=== PATIENT | female | born 1955 | race Caucasian/White ===

== ENCOUNTER 2021-05-26 18:30 | Emergency (ER) | payer SELFPAY ==
--- NOTE | 2021-05-26 18:36 | XRR_ITS ---
PROCEDURE INFORMATION: Exam: XR Chest Exam date and time: 05/26/2021 6:36 PM Age: 65 years old Clinical indication: Pain; Left-sided; Additional info: Chest pain that radiates to back x 1 month worsening TECHNIQUE: Imaging protocol: XR of the chest. Views: 1 view. COMPARISON: No relevant prior studies available. FINDINGS: Lungs: Hyperinflated lungs. No consolidation. Pleural spaces: Unremarkable. No pleural effusion. No pneumothorax. Heart/Mediastinum: Unremarkable. No cardiomegaly. Bones/joints: Unremarkable. XR/XR chest 1V portable [id number] IMPRESSION: Hyperinflated lungs. No consolidation.
[2021-05-26 19:09] VITALS: BP 137/89; PULSE 81; RESP 18; TEMP 36.3; O2SAT 96; BMI 26.5
[2021-05-26 21:26] LABS: Basophils # 0.1 10^3/uL (0.0-0.1); Eosinophils # 0.1 10^3/uL (0.0-0.8); Hematocrit 41.6 % (37.0-47.0); Hemoglobin 14.1 g/dL (11.5-15.3); Lymphocytes # 2.2 10^3/uL (0.8-4.8); Lymphocytes % 34.4 %; Mean Corpuscular HGB Conc 33.9 g/dL (30.0-36.0); Mean Corpuscular Hemoglobin 34.7 pg (28.0-34.0); Mean Corpuscular Volume 102.5 fL (81-99); Mean Platelet Volume 9.4 fL (7.4-10.4); Monocytes # 0.3 10^3/uL (0.2-0.9); Monocytes % 4.8 %; Neutrophils % 58.5 %; Nucleated Red Blood Cells % 0 %; Platelet Count 218 10^3/cmm (130-400); Red Blood Count 4.06 10^6/uL (4.1-5.3); Red Cell Distribution Width 14.9 % (12.1-15.1); White Blood Count 6.3 10^3/uL (4.0-10.0)
[2021-05-26 21:47] LABS: Troponin(5th) Baseline 17 ng/L (0-10)
[2021-05-26 21:48] LABS: Alanine Aminotransferase 15 U/L (0-33); Albumin Level 4.5 g/dL (3.5-5.2); Alkaline Phosphatase 52 IU/L (35-105); Anion Gap 15.8 (5-19); Aspartate Amino Transferase 27 U/L (0-32); Blood Urea Nitrogen 9 mg/dL (8-23); Calcium 9.3 mg/dL (8.5-10.5); Carbon Dioxide 23 mmol/L (22-29); Chloride 101 mmol/L (98-107); Glomerular Filtration Rate 41.4 mL/min (90-130); Glucose 83 mg/dL (65-115); Osmolality Calculated 280 mOsm/kg (285-295); Potassium 3.8 mmol/L (3.5-5.1); Sodium 136 mmol/L (136-145); Total Bilirubin 0.4 mg/dL (0.15-1.2); Total Protein 6.5 g/dL (6.6-8.7)
--- NOTE | 2021-05-27 00:36 | ECG_ITS ---
[facility] ED Test Date: 2021-05-27 Pat Name: Saritah Cisneros Department: Room: Gender: Female Topography Technician: : 1955 Requested By: Charla Wilson Order Number: [id number] Reading MD: Rosalind Jennings M.D. Measurements Intervals [place] Rate: 65 P: 98 SD: 149 QRS: 75 QRSD: 79 T: -67 QT: 397 QTc: 416 Interpretive Statements SINUS RHYTHM LOW QRS VOLTAGE IN PRECORDIAL LEADS [QRS DEFLECTION < 1.0 mV IN CHEST LEADS] NONSPECIFIC ST & T-WAVE ABNORMALITY No previous ECG available for comparison Electronically Signed On 06-02-2021 10:07:44 CDT by Rosalind Jennings M.D. [id number]
--- NOTE | 2021-05-27 00:43 | W.ED.CHESTPA ---
HPI - Chest Pain General: Chief Complaint: Chest Pain Stated Complaint: chest pain Time Seen by Provider: 05/27/21 00:36 Source: patient Mode of arrival: ambulatory Limitations: no limitations History of Present Illness: HPI narrative: 65-year-old female states that over the last 2 months she has been having some fatigue along with chest pains. States that she believes she is fluid overloaded because she has had some swelling in her extremity and face. She states that she has Marie's and is supposed take Synthroid but has not taken it in weeks. She denies any worsening improving factors. Denies any chest pain currently. Denies any cough or fever. Associated symptoms: Reports dyspnea; Deny abdominal pain, fever(s), nausea or vomiting Review of Systems Const: Denies: fever(s), chills, body aches or change in appetite Eyes: Denies: blurry vision or eye discomfort ENMT: Denies: throat pain or dental pain Card: Reports: chest pain Resp: Reports: dyspnea and non-productive cough GI: Denies: abdominal pain, nausea, vomiting or diarrhea : Denies: dysuria Musc: Denies: neck pain or back pain Skin/Breast: Denies: rash Neuro: Denies: headache(s) Psych: Denies: depression Rohan/Lymph: Denies: easy bruising All/Imm: Denies: urticaria Physical Exam Const: COMMON NORMALS: no acute distress, patient oriented x3 and healthy appearing HENMT: COMMON NORMALS: normocephalic and atraumatic HEAD & SCALP: normocephalic and atraumatic Eye: COMMON NORMALS: Equal, round and reactive pupils present and EOMs intact bilaterally PUPIL: Yes Equal, round and reactive pupils present Neck/C-Spine: COMMON NORMALS: full ROM and supple Chest: COMMONS NORMALS: normal inspection of the chest and normal palpation of entire chest wall Resp: COMMON NORMALS: normal respiratory effort, No retractions, No use of accessory muscles and clear to auscultation bilaterally AUSCULTATION: clear to auscultation bilaterally Cardio: COMMON NORMALS: regular rate, regular rhythm and No murmurs present (Cardio) RATE: regular rate RHYTHM: regular rhythm GI: COMMON NORMALS: Normal to inspection, nondistended, normoactive bowel sounds present, Soft to palpation, non-tender and no masses PALPATION: Yes Soft to palpation Extremity: COMMON NORMALS: normal to inspection and full ROM Neuro: COMMON NORMALS: patient oriented x3, moves all extremities and no focal motor deficits Psych: COMMON NORMALS: mental status grossly normal, Normal thought process present and cooperative THOUGHT PROCESS: Normal thought process present Skin: COMMON NORMALS: no rashes or lesions noted and no wounds GENERAL SKIN EXAM: no rashes or lesions noted Course Vital Signs: Vital signs: Vital Signs Temperature 97.3 F L 05/26/21 19:09 Pulse Rate 71 05/27/21 02:29 Respiratory Rate 18 05/27/21 02:29 Blood Pressure 149/87 05/27/21 02:29 Pulse Oximetry 95 05/27/21 02:29 MDM - Chest Pain MDM Narrative: Medical decision making narrative: Patient presents for some malaise along with swelling. She has no signs of heart failure and her BNP is normal. Her TSH is quite high and she does admit she is actually been noncompliant with her Synthroid for multiple months. She has not had a PCP either. We will start her back on her Synthroid and get her new PCP. She is well-appearing here is stable for discharge. She is to follow-up and return if worsening. Lab Data: Labs: Lab Results 05/26/21 05/26/21 05/26/21 Range/Units 21:18 21:18 21:18 WBC 6.3 (4.0-10.0) 10^3/ uL RBC 4.06 L (4.1-5.3) 10^6/u L Hgb 14.1 (11.5-15.3) g/dL Hct 41.6 (37.0-47.0) % MCV 102.5 H (81-99) fL MCH 34.7 H (28.0-34.0) pg MCHC 33.9 (30.0-36.0) g/dL RDW 14.9 (12.1-15.1) % Plt Count 218 (130-400) 10^3/c mm MPV 9.4 (7.4-10.4) fL Neut % (Auto) 58.5 % Lymph % (Auto) 34.4 % Edmunds % (Auto) 4.8 % Eos % (Auto) 1.0 % Baso % (Auto) 1.0 % Neut # (Auto) 3.70 (1.8-7.7) 10^3/u L Lymph # (Auto) 2.2 (0.8-4.8) 10^3/u L Edmunds # (Auto) 0.3 (0.2-0.9) 10^3/u L Eos # (Auto) 0.1 (0.0-0.8) 10^3/u L Baso # (Auto) 0.1 (0.0-0.1) 10^3/u L Nucleated RBC % (a uto) 0 % Nucleated RBCs # 0.0 /100WBC Sodium 136 (136-145) mmol/L Potassium 3.8 (3.5-5.1) mmol/L Chloride 101 (98-107) mmol/L Carbon Dioxide 23 (22-29) mmol/L Anion Gap 15.8 (5-19) BUN 9 (8-23) mg/dL Creatinine 1.3 H (0.5-0.9) mg/dL GFR Calculation 41.4 L (90-130) mL/min Glucose 83 (65-115) mg/dL Calculated Osmolal ity 280 L (285-295) mOsm/k g Calcium 9.3 (8.5-10.5) mg/dL Total Bilirubin 0.4 (0.15-1.2) mg/dL AST 27 (0-32) U/L ALT 15 (0-33) U/L Alkaline Phosphata se 52 (35-105) IU/L Troponin T Baselin e 17 H (0-10) ng/L Troponin T 120 Min hamilton (0-10) ng/L Delta Troponin T (0-10) ABS# NT-Pro-B Natriuret Pep (0-125) pg/mL Total Protein 6.5 L (6.6-8.7) g/dL Albumin 4.5 (3.5-5.2) g/dL Globulin 2.0 (1.3-4.6) g/dL TSH (0.27-4.20) uIU/ mL 05/26/21 05/26/21 Range/Units 23:11 23:11 WBC (4.0-10.0) 10^3/ uL RBC (4.1-5.3) 10^6/u L Hgb (11.5-15.3) g/dL Hct (37.0-47.0) % MCV (81-99) fL MCH (28.0-34.0) pg MCHC (30.0-36.0) g/dL RDW (12.1-15.1) % Plt Count (130-400) 10^3/c mm MPV (7.4-10.4) fL Neut % (Auto) % Lymph % (Auto) % Edmunds % (Auto) % Eos % (Auto) % Baso % (Auto) % Neut # (Auto) (1.8-7.7) 10^3/u L Lymph # (Auto) (0.8-4.8) 10^3/u L Edmunds # (Auto) (0.2-0.9) 10^3/u L Eos # (Auto) (0.0-0.8) 10^3/u L Baso # (Auto) (0.0-0.1) 10^3/u L Nucleated RBC % (a uto) % Nucleated RBCs # /100WBC Sodium (136-145) mmol/L Potassium (3.5-5.1) mmol/L Chloride (98-107) mmol/L Carbon Dioxide (22-29) mmol/L Anion Gap (5-19) BUN (8-23) mg/dL Creatinine (0.5-0.9) mg/dL GFR Calculation (90-130) mL/min Glucose (65-115) mg/dL Calculated Osmolal ity (285-295) mOsm/k g Calcium (8.5-10.5) mg/dL Total Bilirubin (0.15-1.2) mg/dL AST (0-32) U/L ALT (0-33) U/L Alkaline Phosphata se (35-105) IU/L Troponin T Baselin e (0-10) ng/L Troponin T 120 Min hamilton 15.95 H (0-10) ng/L Delta Troponin T -1.05 L (0-10) ABS# NT-Pro-B Natriuret Pep 60 (0-125) pg/mL Total Protein (6.6-8.7) g/dL Albumin (3.5-5.2) g/dL Globulin (1.3-4.6) g/dL TSH 171.10 H (0.27-4.20) uIU/ mL EKG Data^: EKG 1: Attestation: I personally reviewed and interpreted this EKG as follows: EKG interpretation date: 05/26/21 EKG interpretation time: 19:23 Interpretation: nsr hr [address] or t wave abnormalities qrs 84 qtc 414 EKG 2: Attestation: I personally reviewed and interpreted this EKG as follows: EKG interpretation date: 05/27/21 EKG interpretation time: 00:38 Interpretation: nsr hr [address] or t wve abnormalities qrs 79 qtc 409 Discharge Plan Discharge Patient Disposition: Home Clinical Impression: Hypothyroidism Qualifiers: Hypothyroidism type: unspecified Qualified Code(s): E03.9 - Hypothyroidism, unspecified Condition: Stable Prescriptions: New Synthroid 112 mcg tablet 112 mcg PO DAILY Qty: 30 RF: 0 Discharge Orders: Discharge ED (Routine); Ordered 05/27/21 Ordered By: Charla Wilson Discharge Diet: Advance as tolerated Discharge Activity: Resume usual activity Patient Instructions: Hypothyroidism (ED) Coding Level of Care Code ED Memorial Marker Designer for Chg Fwd Exam Comprehensive
[2021-05-27 00:48] VITALS: BP 149/91; PULSE 98; RESP 18; O2SAT 94
[2021-05-27 01:03] LABS: Troponin 5 2HR 15.95 ng/L (0-10); Troponin 5 2HR Delta -1.05 ABS# (0-10)
[2021-05-27 01:16] VITALS: BP 155/93; PULSE 66; O2SAT 94
[2021-05-27 01:25] LABS: NT Pro B Type Natriuretic Pept 60 pg/mL (0-125)
[2021-05-27 02:28] VITALS: BP 149/87; PULSE 67; O2SAT 94
[2021-05-27 02:29] VITALS: BP 149/87; PULSE 71; RESP 18; O2SAT 95
--- NOTE | 2021-05-27 09:18 | DCPLANNER ---
manager simulation had message to speak with patient about getting established with a primary care physician. manager simulation called phone number [phone], unable to speak with patient at this time. manager simulation was unable to leave a voicemail for patient due to no voicemail box being set up at this time.
== END 2021-05-27 02:31 | disposition home or self-care (01) ==
PROVIDERS: Emergency Provider Emergency Medicine
DX: E03.9 Hypothyroidism, unspecified (principal)
CPT/HCPCS: 36415; 71045; 80053; 83880; 84443; 84484; 85025; 93005; 99283

== ENCOUNTER 2021-06-08 10:51 | Outpatient (CLI) | payer SELFPAY ==
[2021-06-08 11:41] LABS: Free T4 Free Thyroxine 1.35 ng/dL (0.82-1.77); Thyroid Stimulating Hormone 25.14 uIU/mL (0.27-4.20)
== END 2021-06-08 10:52 | disposition home or self-care (01) ==
LOC: LAB 10:54
PROVIDERS: Visit Provider Internal Medicine
DX: E03.9 Hypothyroidism, unspecified (principal)
CPT/HCPCS: 36415; 84439; 84443

== ENCOUNTER 2022-02-10 09:37 | Outpatient (CLI) | payer SELFPAY ==
[2022-02-10 11:14] LABS: Free T4 Free Thyroxine 1.27 ng/dL (0.82-1.77); Thyroid Stimulating Hormone 9.38 uIU/mL (0.27-4.20)
== END 2022-02-10 09:38 | disposition home or self-care (01) ==
LOC: LAB 09:39
PROVIDERS: Visit Provider Internal Medicine
DX: E03.9 Hypothyroidism, unspecified (principal)
CPT/HCPCS: 36415; 84439; 84443

== ENCOUNTER 2022-06-24 12:56 | Observation (INO) | payer SELFPAY ==
[2022-06-24] VITALS (19 sets, daily range): BP systolic 92–151; BP diastolic 54–80; PULSE 42–123; RESP 12–23; TEMP 36.7–36.9; O2SAT 93–98
--- NOTE | 2022-06-24 13:25 | ECG_ITS ---
[facility] Test Date: 2022-06-24 Pat Name: Saritha Cisneros Department: Room: Gender: Female Shipper And Receiving: : 1955 Requested By: Sathya Doherty Order Number: [id number] Mark MD: Rosalind Jennings M.D. Measurements Intervals [place] Rate: 123 P: 75 SC: 120 QRS: 72 QRSD: 84 T: 59 QT: 274 QTc: 393 Interpretive Statements SINUS TACHYCARDIA MODERATE ST DEPRESSION [0.05+ mV ST DEPRESSION] Compared to ECG 05/27/2021 00:38:05 ST (T wave) deviation now present Sinus rhythm no longer present T-wave abnormality no longer present Electronically Signed On 06-25-2022 13:07:01 CDT by Rosalind Jennings M.D. [id number]
--- NOTE | 2022-06-24 13:34 | ED_ITS ---
HPI - Arrhythmia/Palpitations General: Chief Complaint: Arrhythmia/Palpitations Stated Complaint: Racing heart Time Seen by Provider: 06/24/22 13:16 Source: patient Mode of arrival: ambulatory Limitations: no limitations History of Present Illness: 66-year-old female presents emergency room with complaints of rapid heart rate. She reports at home earlier today she had a heart rate up into the 180s. She had a similar episode last week and it was accompanied by chest pain that resolved itself spontaneously. This episode she felt it was still rapid and irregular when she arrived here but when you put her on the monitor it was down in the 120s. She had chest discomfort with this episode as well that resolved when her heart rate improved. She is a history of hypothyroidism and is currently on thyroxine she has no known history of coronary artery disease but she does smoke. She has no known history of any tachyarrhythmias. MD complaint: rapid heart beat, heart racing , skipped beats and irregular heart beat Onset (ago): week(s) (Initial episode 1 week ago also associated with chest pain) Duration: intermittent Severity: moderate Context: occurred during rest Associated symptoms: Deny anxiety, cough, diaphoresis, muscle cramps, nausea, paresthesias, pre-syncope, sense of impending doom, short of breath, syncope or vomiting Review of Systems Const: Denies: fever(s), chills, fatigue, malaise or diaphoresis ENMT: Denies: throat pain, ear or mastoid pain, nasal discharge or nasal congestion Card: Reports: chest pain and irregular heart rhythm; Denies: palpitations, edema, swelling of feet/ankles, syncope or pre-syncope Resp: Denies: dyspnea, productive cough or non-productive cough GI: Denies: abdominal pain, nausea or vomiting : Denies: flank pain, difficulty voiding, dysuria, urinary frequency or urinary urgency Musc: Denies: muscle cramps Skin/Breast: Denies: rash or pruritus Psych: Denies: anxiety PFSH ED PFSH: Medical History Chest pain Colitis Congestive heart failure Hypothyroidism Palpitation Rheumatoid arthritis Surgical History No history of previous surgery Family History Father CAD (coronary artery disease) Diabetes Mother Rheumatoid arteritis Social History Smoking and tobacco status: current every day smoker cigarettes Packs smoked per day: 0.5 Alcohol intake: never Physical Exam Const: GENERAL APPEARANCE: cooperative and comfortable ORIENTATION/CONSCIOUSNESS: Yes awake, Yes oriented to person, Yes oriented to place and Yes oriented to time HENMT: COMMON NORMALS: normocephalic, atraumatic and hearing grossly normal bilaterally HEAD & SCALP: normocephalic and atraumatic Resp: COMMON NORMALS: normal respiratory effort, No retractions, No use of accessory muscles and clear to auscultation bilaterally AUSCULTATION: clear to auscultation bilaterally Cardio: COMMON NORMALS: regular rate, regular rhythm and No murmurs present (Cardio) RATE: regular rate RHYTHM: regular rhythm GI: COMMON NORMALS: Soft to palpation and No hepatosplenomegaly present AUSCULTATION: Yes normoactive bowel sounds PALPATION: Yes Soft to palpation, No Tenderness to palpation present (GI), No Guarding due to palpation present (GI) and Yes No hepatosplenomegaly present Extremity: COMMON NORMALS: normal to inspection, capillary refill normal, no clubbing, cyanosis or edema, no calf tenderness and no pedal edema Neuro: SENSORIUM/ORIENTATION: Yes oriented to person, Yes oriented to place and Yes oriented to time Skin: COMMON NORMALS: no rashes or lesions noted GENERAL SKIN EXAM: no rashes or lesions noted Course Vital Signs: Vital signs: Vital Signs Temperature 97.4 F L 06/25/22 00:00 Pulse Rate 64 06/25/22 11:00 Respiratory Rate 12 06/25/22 11:00 Blood Pressure 143/78 06/25/22 11:00 Pulse Oximetry 91 06/25/22 10:00 Oxygen Delivery Me thod 06/24/22 18:18 MDM - Arrhythmia/Palpitations Medical Decision Making Patient reports previous abnormal stress test. She is having chest pain now episode a week ago resolved spontaneously this 1 resolved after receiving nitro. Discussed with hospitalist will admit placed on observation. Medical Records I reviewed the patient's medical records. Lab Data I reviewed the patient's lab results. : 06/25/22 03:54 06/25/22 03:54 Laboratory Results WBC 8.0 10^3/uL (4.0-10.0) 06/24/22 13:24 RBC 4.72 10^6/uL (4.1-5.3) 06/24/22 13:24 Hgb 15.5 g/dL (11.5-15.3) H 06/24/22 13:24 Hct 46.2 % (37.0-47.0) 06/24/22 13:24 MCV 97.9 fl (81-99) 06/24/22 13:24 MCH 32.8 pg (28.0-34.0) 06/24/22 13:24 MCHC 33.5 g/dL (30.0-36.0) 06/24/22 13:24 RDW 12.9 % (12.1-15.1) 06/24/22 13:24 Plt Count 240 10^3/cmm (130-400) 06/24/22 13:24 MPV 9.9 fL (7.4-10.4) 06/24/22 13:24 Neut % (Auto) 75.7 % 06/24/22 13:24 Lymph % (Auto) 18.3 % 06/24/22 13:24 [place] % (Auto) 4.9 % 06/24/22 13:24 Eos % (Auto) 0.3 % 06/24/22 13:24 Baso % (Auto) 0.5 % 06/24/22 13:24 Neut # (Auto) 6.04 10^3/uL (1.8-7.7) 06/24/22 13:24 Lymph # (Auto) 1.5 10^3/uL (0.8-4.8) 06/24/22 13:24 [place] # (Auto) 0.4 10^3/uL (0.2-0.9) 06/24/22 13:24 Eos # (Auto) 0.0 10^3/uL (0.0-0.8) 06/24/22 13:24 Baso # (Auto) 0.0 10^3/uL (0.0-0.1) 06/24/22 13:24 Nucleated RBC % (auto) 0 % 06/24/22 13:24 Nucleated RBCs # 0.0 /100WBC 06/24/22 13:24 Sodium 141 mmol/L (136-145) 06/24/22 13:24 Potassium 4.4 mmol/L (3.5-5.1) 06/24/22 13:24 Chloride 103 mmol/L (98-107) 06/24/22 13:24 Carbon Dioxide 26 mmol/L (22-29) 06/24/22 13:24 Anion Gap 16.4 (5-19) 06/24/22 13:24 BUN 13 mg/dL (8-23) 06/24/22 13:24 Creatinine 0.9 mg/dL (0.5-0.9) 06/24/22 13:24 GFR Calculation 63.0 mL/min (90-130) L 06/24/22 13:24 Glucose 111 mg/dL (65-115) 06/24/22 13:24 Calculated Osmolality 293 mOsm/kg (285-295) 06/24/22 13:24 Calcium 9.6 mg/dL (8.5-10.5) 06/24/22 13:24 Magnesium 1.9 mg/dL (1.7-2.3) 06/24/22 13:24 Total Bilirubin 0.3 mg/dL (0.15-1.2) 06/24/22 13:24 AST 16 U/L (0-32) 06/24/22 13:24 ALT 11 U/L (0-33) 06/24/22 13:24 Alkaline Phosphatase 63 U/L (35-105) 06/24/22 13:24 Troponin T Baseline 11 ng/L (0-10) H 06/24/22 13:24 Troponin T 120 Minute 15.02 ng/L (0-10) H 06/24/22 15:18 Delta Troponin T 4.02 ABS# (0-10) 06/24/22 15:18 Total Protein 7.1 g/dL (6.6-8.7) 06/24/22 13:24 Albumin 4.2 g/dL (3.5-5.2) 06/24/22 13:24 Globulin 2.9 g/dL (1.3-4.6) 06/24/22 13:24 TSH 9.92 uIU/mL (0.27-4.20) H 06/24/22 13:24 Urine Color Yellow (Yellow) 06/24/22 14:06 Urine Appearance Clear (CLEAR) 06/24/22 14:06 Urine pH 7 (5-7) 06/24/22 14:06 Ur Specific [place] 1.000 (1.005-1.030) L 06/24/22 14:06 Urine Protein Neg (Negative) 06/24/22 14:06 Urine Glucose (UA) Norm (Normal) 06/24/22 14:06 Urine Ketones Negative (Negative) 06/24/22 14:06 Urine Blood Neg (Negative) 06/24/22 14:06 Urine Nitrate Negative (Negative) 06/24/22 14:06 Urine Bilirubin Neg (Negative) 06/24/22 14:06 Urine Urobilinogen Norm mg/dL (Negative) 06/24/22 14:06 Ur Leukocyte Esterase Negative (Negative) 06/24/22 14:06 Discharge Plan Discharge Patient Disposition: Admitted As Inpatient Admit Provider: Jayme Vang Clinical Impression: Chest pain, Palpitations, Hypothyroidism Condition: Stable Discharge Diet: Cardiac Discharge Activity: Resume usual activity Coding Level of Care Code ED Boot And Saddle Repair Person for Chg Fwd Exam Detailed
[2022-06-24 13:37] LABS: Basophils % 0.5 %; Eosinophils % 0.3 %; Hematocrit 46.2 % (37.0-47.0); Hemoglobin 15.5 g/dL (11.5-15.3); Lymphocytes # 1.5 10^3/uL (0.8-4.8); Lymphocytes % 18.3 %; Mean Corpuscular HGB Conc 33.5 g/dL (30.0-36.0); Mean Corpuscular Hemoglobin 32.8 pg (28.0-34.0); Mean Corpuscular Volume 97.9 fl (81-99); Mean Platelet Volume 9.9 fL (7.4-10.4); Monocytes # 0.4 10^3/uL (0.2-0.9); Monocytes % 4.9 %; Neutrophils # 6.04 10^3/uL (1.8-7.7); Neutrophils % 75.7 %; Nucleated Red Blood Cells % 0 %; Platelet Count 240 10^3/cmm (130-400); Red Blood Count 4.72 10^6/uL (4.1-5.3); Red Cell Distribution Width 12.9 % (12.1-15.1)
[2022-06-24 14:05] LABS: Troponin(5th) Baseline 11 ng/L (0-10)
[2022-06-24 14:15] LABS: Alanine Aminotransferase 11 U/L (0-33); Albumin Level 4.2 g/dL (3.5-5.2); Alkaline Phosphatase 63 U/L (35-105); Anion Gap 16.4 (5-19); Aspartate Amino Transferase 16 U/L (0-32); Blood Urea Nitrogen 13 mg/dL (8-23); Calcium 9.6 mg/dL (8.5-10.5); Carbon Dioxide 26 mmol/L (22-29); Chloride 103 mmol/L (98-107); Globulin 2.9 g/dL (1.3-4.6); Glucose 111 mg/dL (65-115); Magnesium 1.9 mg/dL (1.7-2.3); Osmolality Calculated 293 mOsm/kg (285-295); Potassium 4.4 mmol/L (3.5-5.1); Sodium 141 mmol/L (136-145); Thyroid Stimulating Hormone 9.92 uIU/mL (0.27-4.20); Total Bilirubin 0.3 mg/dL (0.15-1.2); Total Protein 7.1 g/dL (6.6-8.7)
[2022-06-24 14:22] LABS: Add Urine Microscopic? NO; Bilirubin Urine Neg (Negative); Blood Urine Neg (Negative); Glucose Urine UA Norm (Normal); Ketones Urine Negative (Negative); Leukocyte Esterase Urine Negative (Negative); Nitrate Urine Negative (Negative); Protein Urine Neg (Negative); Urine Appearance Clear (CLEAR); Urine Color Yellow (Yellow); Urobilinogen Urine Norm (Negative); pH Urine 7 (5-7)
[2022-06-24 14:24] LABS: Charge for UA Resulting for Rev
[2022-06-24] MEDS: metoprolol tartrate 25 mg Tablet PO (15:09)
[2022-06-24] MEDS: metoprolol tartrate 1 mg/1 mL SDV 5 mL 2.5 MG IVP (15:09)
--- NOTE | 2022-06-24 15:25 | ECG_ITS ---
[facility] Test Date: 2022-06-24 Pat Name: Saritha Cisneros Department: Room: Gender: Female Nuclear Design Engineer: : 1955 Requested By: Sathya Doherty Order Number: [id number] Reading MD: Rosalind Jennings M.D. Measurements Intervals [place] Rate: 78 P: 74 MT: 152 QRS: 62 QRSD: 85 T: 68 QT: 356 QTc: 406 Interpretive Statements SINUS RHYTHM Compared to ECG 05/27/2021 00:38:05 T-wave abnormality no longer present Electronically Signed On 06-25-2022 13:17:00 CDT by Rosalind Jennings M.D. [id number]
[2022-06-24 15:47] LABS: Troponin 5 2HR 15.02 ng/L (0-10)
[2022-06-24 15:51] LABS: Troponin 5 2HR Delta 4.02 ABS# (0-10)
[2022-06-24] MEDS: aspirin 81 mg Chew Tablet 324 MG PO (16:10)
--- NOTE | 2022-06-24 17:50 | P.HP_ITS ---
Providers/Chief Complaint Admitting Physician: Jayme Vang MD Chief Complaint: Racing heart History of Present Illness Saritha Cisneros is a 66 year old female with PMH of hypothyroidism, COVID, came in with c/o acute onset palpitation as well as chest pain today at home, she has experienced similar episode of racing of heart about a week back at that time it was accompanied with lt sided chest pain, radiating to her jaws, it re solved spontaneously. When she arrived in the ER she was found to be in sinus tachycardia,she was given metoprolol po as well as I.V in the ER, ALONG WITH 325 MG PO aspirin. When i examined the patient she was in sinus bradycardia. Pertinent imaging studies in the ER : EKG done so far has shown sinus tachycardia as well as SR and sinus Bradycardia. Pertinent Labs : WBC : 8 H&H : 15/46 , PLT : 240 , Na: 141, K : 4.4 BUN/SCR : 13/0.9 , TSH : 9.9 Troponin: 09-05-17 Medications/Allergies Home Medications Medication Instructions Recorded Confirmed Last Taken Type levothyroxine 112 mcg tablet 112 mcg PO DAILY #90 tabs 06/14/21 06/24/22 06/24/22 Rx (Synthroid) Allergies Allergy/AdvReac Type Severity Reaction Status Date / Time acetaminophen Allergy ALGY-Anaphy Verified 06/24/22 13:12 [From Darvocet-N] laxis propoxyphene Allergy ALGY-Anaphy Verified 06/24/22 13:12 [From Darvocet-N] laxis PFSH Acute PFSH: Medical History Colitis Congestive heart failure Hypothyroidism Rheumatoid arthritis Surgical History No history of previous surgery Family History Father CAD (coronary artery disease) Diabetes Mother Rheumatoid arteritis Social History Smoking and tobacco status: current every day smoker cigarettes Packs smoked per day: 0.5 Alcohol intake: never Vitals/I&O/Wt Last Vital Signs Temp 98.5 F 06/24/22 13:07 Pulse 72 06/24/22 16:16 Resp 14 06/24/22 16:16 BP 113/72 06/24/22 16:16 Pulse Ox 98 06/24/22 16:16 O2 Del Method 06/24/22 16:16 Weight last 48 hrs Weight 54.431 kg Physical Exam Const: COMMON NORMALS: patient oriented x3 HENMT: COMMON NORMALS: normocephalic and atraumatic HEAD & SCALP: normocephalic and atraumatic Eye: GENERAL EYE: appearance normal, both eyes and all related structures Chest: COMMONS NORMALS: normal inspection of the chest and normal palpation of entire chest wall CHEST: Yes Symmetrical chest wall rise Resp: COMMON NORMALS: normal respiratory effort, No retractions, No use of accessory muscles and clear to auscultation bilaterally EFFORT & INSPECTION: Yes symmetric chest movement AUSCULTATION: clear to auscultation bilaterally Cardio: COMMON NORMALS: regular rate, regular rhythm, S1 normal heart sound pr esent, S2 normal heart sound present, No gallops present (Cardio), No murmurs present (Cardio), No rub (Cardio) and Peripheral pulses 2+ throughout RATE: regular rate RHYTHM: regular rhythm HEART SOUNDS: S1 normal heart sound present and S2 normal heart sound present PERIPHERAL PULSES: Peripheral pulses 2+ throughout GI: COMMON NORMALS: Normal to inspection, nondistended, normoactive bowel sounds present, Soft to palpation, non-tender, No hepatosplenomegaly present and no masses AUSCULTATION: Yes normoactive bowel sounds PALPATION: Yes Soft to palpation and Yes No hepatosplenomegaly present RECTAL EXAM: deferred Extremity: COMMON NORMALS: no clubbing, cyanosis or edema and no pedal edema Neuro: COMMON NORMALS: patient oriented x3 Data : 06/24/22 13:24 06/24/22 13:24 A&P Assessment and plan (1) Hypothyroidism: Status: Acute (2) Palpitation: Status: Acute (3) Chest pain: Status: Acute Plan 66 year old female with PMH of hypothyroidism, COVID, came in with c/o acute onset palpitation as well as chest pain today at home, she has experienced similar episode of racing of heart about a week back at that time it was accompanied with lt sided chest pain, radiating to her jaws, it resolved spontaneously. Assessment : Palpitation Hypothyroidism Chest Pain Plan : Off note patient gives h/o abnormal stress test in past. Follow 2D Echo Continue telemetry monitoring Possible Event monitor as outpatient Will do repeat stress Test. possibly outpatient. Continue Levothyroxine po Code Status : Full Code DVT PPX: On lovenox Attestations Medical Necessity Statement*: Patient needs to be in hospital for the management of palpitation, chest pain. Time Spent in Patient Care: Greater than 35 minutes (>than 50% of time spent in counselling and/or direct pt care on unit) . Coding Level of Care Code Acute Radio/Tv Technician for Chg Fwd Diagnoses Hypothyroidism E03.9 Palpitation R00.2 Chest pain R07.9
[2022-06-24] MEDS: enoxaparin 30 mg/0.3 mL Syringe SUBCUT (18:25)
--- NOTE | 2022-06-24 19:25 | ECG_ITS ---
[facility] Test Date: 2022-06-24 Pat Name: Saritha Cisneros Department: Room: [facility] Gender: Female Baby Doctor: : 1955 Requested By: Sathya Doherty Order Number: [id number] Mark MD: Rosalind Jennings M.D. Measurements Intervals [place] Rate: 48 P: 63 MI: 162 QRS: 62 QRSD: 87 T: 64 QT: 463 QTc: 415 Interpretive Statements SINUS BRADYCARDIA Compared to ECG 06/24/2022 15:39:26 Sinus rhythm no longer present Electronically Signed On 06-25-2022 13:14:39 CDT by Rosalind Jennings M.D. [email or web address] [facility]flower [facility] centerSalsa [facility]he [id number]
[2022-06-24 19:47] LABS: Troponin 5 6HR 17.17 ng/L (0-10)
[2022-06-24 19:50] LABS: Troponin 5 6HR Delta 6.17 ng/L (0-12)
--- NOTE | 2022-06-24 20:09 | USCV_ITS ---
Saritha Cisneros Age: 66 Gender: F : 1955 Exam Date: 06/24/2022 22:33 Ordering Phys: Jayme Vang MD Technologist: Quentin Hodge Exam Location[place] [facility] [place] Indication: Chest pain / palpitations BP: 116 / 61 HR: 44 Rhythm: Sinus Technical Quality: Adequate MEASUREMENTS (Male / Female) Normal Values 2D ECHO LV Diastolic Diameter PLAX 3.2 cm 4.2 - 5.9 / 3.9 - 5.3 cm LV Systolic Diameter PLAX 2.3 cm IVS Diastolic Thickness 1.7 cm 0.6 - 1.0 / 0.6 - 0.9 cm IVS Systolic Thickness 1.4 cm LVPW Diastolic Thickness 1.3 cm 0.6 - 1.0 / 0.6 - 0.9 cm LVPW Systolic Thickness 1.4 cm LVOT Diameter 2.1 cm LV Ejection Fraction 2D Teich 55.2 % LV Ejection Fraction MOD 2C 58.0 % LV Ejection Fraction 2C AL 59.4 % LA Diameter 2.4 cm LA Width 3.0 cm LA Height 4.3 cm RA Width 3.7 cm RA Height 4.0 cm Aorta at Sinotubular Diameter 2.8 cm IVC Diameter 1.1 cm M-MODE Aortic Annulus Diameter 3.2 cm LA Ao Ratio MM 0.9 MV E Point Septal Separation 1.4 cm DOPPLER AV Peak Velocity 90.0 cm/s LVOT Peak Velocity 66.0 cm/s AV Area Cont Eq vti 2.3 cm squared AV Area Cont Eq pk 2.4 cm squared MV Area PHT 3.6 cm squared Mitral E to A Ratio 1.2 MV E' Velocity 52.0 cm/s Mitral E to MV E' Ratio 9.6 Mitral E to LV E' Lateral Ratio 9.4 Mitral E to LV E' Septal Ratio 9.8 Right Atrial Pressure 3.0 mmHg PV Peak Velocity 82.0 cm/s FINDINGS Left Ventricle Normal left ventricular size, systolic function and wall thickness, with no regional wall motion abnormalities. Left ventricular ejection fraction is estimated at 60 -65%. Normal diastolic function. Right Ventricle Normal right ventricular size and systolic function. RVSP could not be calculated due to incomplete tricuspid regurgitation velocity profile. Right Atrium Normal right atrial size. Left Atrium Normal left atrial size. Mitral Valve Structurally normal mitral valve. No mitral valve stenosis. Trace mitral valve regurgitation. Aortic Valve Aortic valve not well visualized. No aortic valve stenosis. No aortic valve regurgitation. Tricuspid Valve Structurally normal tricuspid valve. Trace tricuspid valve regurgitation. Pulmonic Valve Pulmonic valve not well visualized. No pulmonary valve stenosis. No pulmonary valve regurgitation. Pericardium No pericardial effusion. Aorta Normal size aortic root and proximal ascending aorta. IVC Normal IVC dimension with >50% respiratory change of the inferior vena cava. CONCLUSIONS 1. Normal left ventricular size, systolic function and wall thickness, with no regional wall motion abnormalities. Left ventricular ejection fraction is estimated at 60 -65%. Normal diastolic function. 2. Normal right ventricular size and systolic function. 3. Trace mitral valve regurgitation. 4. No prior similar studies to compare. Rosalind Jennings MD (Electronically Signed) Final Date: 25 June 2022 12:48 S
[2022-06-25] VITALS (17 sets, daily range): BP systolic 106–148; BP diastolic 59–87; PULSE 47–111; RESP 12–20; TEMP 36.3; O2SAT 91–96
[2022-06-25 05:03] LABS: Basophils # 0.1 10^3/uL (0.0-0.1); Basophils % 0.8 %; Eosinophils # 0.1 10^3/uL (0.0-0.8); Eosinophils % 1.1 %; Hematocrit 42.2 % (37.0-47.0); Lymphocytes # 2.4 10^3/uL (0.8-4.8); Lymphocytes % 37.7 %; Mean Corpuscular HGB Conc 33.2 g/dL (30.0-36.0); Mean Corpuscular Hemoglobin 33.1 pg (28.0-34.0); Mean Corpuscular Volume 99.8 fl (81-99); Mean Platelet Volume 10.2 fL (7.4-10.4); Monocytes # 0.4 10^3/uL (0.2-0.9); Monocytes % 5.6 %; Neutrophils # 3.51 10^3/uL (1.8-7.7); Neutrophils % 54.6 %; Nucleated Red Blood Cells % 0 %; Platelet Count 185 10^3/cmm (130-400); Red Blood Count 4.23 10^6/uL (4.1-5.3); Red Cell Distribution Width 13.1 % (12.1-15.1); White Blood Count 6.4 10^3/uL (4.0-10.0)
[2022-06-25 05:23] LABS: INR 0.95 (0.8-1.2)
[2022-06-25 05:56] LABS: Alanine Aminotransferase 8 U/L (0-33); Alkaline Phosphatase 55 U/L (35-105); Aspartate Amino Transferase 12 U/L (0-32); Blood Urea Nitrogen 12 mg/dL (8-23); Calcium 8.8 mg/dL (8.5-10.5); Carbon Dioxide 24 mmol/L (22-29); Chloride 106 mmol/L (98-107); Globulin 2.2 g/dL (1.3-4.6); Glomerular Filtration Rate 100.6 mL/min (90-130); Glucose 84 mg/dL (65-115); Osmolality Calculated 289 mOsm/kg (285-295); Sodium 140 mmol/L (136-145); Thyroid Stimulating Hormone 9.23 uIU/mL (0.27-4.20); Total Bilirubin 0.4 mg/dL (0.15-1.2); Total Protein 6.2 g/dL (6.6-8.7)
[2022-06-25] MEDS: levothyroxine 112 mcg Tablet PO (08:36)
--- NOTE | 2022-06-25 12:05 | P.DS_ITS ---
Discharge Providers Date of Admission: 06/24/22 17:59 Date of Discharge: June 25, 2022 Attending Provider at Admission: Jayme Vang MD Attending Provider at Discharge: Jayme Vang MD Diagnoses at Discharge Discharge Diagnosis (1) Hypothyroidism: Status: Acute (2) Palpitation: Status: Acute (3) Chest pain: Status: Acute Reason for Visit Reason for Visit: Racing heart Hospital Course Hospital Course HPI : Saritha Cisneros is a 66 year old female with PMH of hypothyroidism, COVID,? came in with c/o acute onset palpitation as well as chest pain today at home, she has experienced similar episode of racing of heart about a week back at that time it was accompanied with lt sided chest pain, radiating to her jaws,? it resolved spontaneously. When she arrived in the ER she was found to be in sinus tachycardia,she was given metoprolol po as well as I.V in the ER, ALONG WITH 325 MG PO aspirin. When i examined the patient she was in sinus bradycardia. Pertinent imaging studies in the ER : EKG done so far has shown sinus tachycardia as well as SR and sinus Bradycardia. Pertinent Labs : WBC : 8 H&H : 15/46 , PLT : 240 , Na: 141, K : 4.4 BUN/SCR : 13/0.9 , TSH : 9.9 Troponin: 09-05-17. Patient was admitted for the management of symptomatic palpitation: During the hospital stay she was initially into sinus bradycardia, later she was in sinus rhythm. 2D echo done during the hospital stay: Normal left ventricular size, systolic function and wall ?thickness, with no regional wall motion abnormalities. Left ventricular ejection fraction is estimated at 60 -65%. Normal ?diastolic function. Normal right ventricular size and systolic function. Trace mitral valve regurgitation. She has been discharged on p.o. metoprolol as needed, for sustained heart rate greater than 110, outpatient event monitor for a month as well as outpatient cardiac stress test, given her prior history of abnormal stress test, as told by the patient, records of which is currently not available. Overall patient has responded well to medical management and was discharged in stable condition to home. She will follow cardiology as well as primary care physician as outpatient Physical Exam Const: COMMON NORMALS: patient oriented x3 HENMT: COMMON NORMALS: normocephalic and atraumatic HEAD & SCALP: normocephalic and atraumatic Eye: GENERAL EYE: appearance normal, both eyes and all related structures Chest: COMMONS NORMALS: normal inspection of the chest and normal palpation of entire chest wall CHEST: Yes Symmetrical chest wall rise Resp: COMMON NORMALS: normal respiratory effort, No retractions, No use of accessory muscles and clear to auscultation bilaterally EFFORT & INSPECTION: Yes symmetric chest movement AUSCULTATION: clear to auscultation bilaterally Cardio: COMMON NORMALS: regular rate, regular rhythm, S1 normal heart sound present, S2 normal heart sound present, No gallops present (Cardio), No murmurs present (Cardio), No rub (Cardio) and Peripheral pulses 2+ throughout RATE: regular rate RHYTHM: regular rhythm HEART SOUNDS: S1 normal heart sound present and S2 normal heart sound present PERIPHERAL PULSES: Peripheral pulses 2+ throughout GI: COMMON NORMALS: Normal to inspection, nondistended, normoactive bowel sounds present, Soft to palpation, non-tender, No hepatosplenomegaly present and no masses AUSCULTATION: Yes normoactive bowel sounds PALPATION: Yes Soft to palpation and Yes No hepatosplenomegaly present RECTAL EXAM: deferred Extremity: COMMON NORMALS: no clubbing, cyanosis or edema and no pedal edema Neuro: COMMON NORMALS: patient oriented x3 Discharge Data Studies Completed and Pending Pending at discharge Category Date Time Status Complete Blood Count w/Auto AM LABS Lab 06/26/22 04:00 Ordered Complete Blood Count w/Auto AM LABS Lab 06/27/22 04:00 Ordered Comprehensive Metabolic Panel AM LABS Lab 06/26/22 04:00 Ordered Comprehensive Metabolic Panel AM LABS Lab 06/27/22 04:00 Ordered CV. echo complete* [id number] Routine Ultrasound 06/24/22 20:09 Taken Laboratory Results WBC 6.4 10^3/uL (4.0-10.0) 06/25/22 03:54 RBC 4.23 10^6/uL (4.1-5.3) 06/25/22 03:54 Hgb 14.0 g/dL (11.5-15.3) 06/25/22 03:54 Hct 42.2 % (37.0-47.0) 06/25/22 03:54 MCV 99.8 fl (81-99) H 06/25/22 03:54 MCH 33.1 pg (28.0-34.0) 06/25/22 03:54 MCHC 33.2 g/dL (30.0-36.0) 06/25/22 03:54 RDW 13.1 % (12.1-15.1) 06/25/22 03:54 Plt Count 185 10^3/cmm (130-400) 06/25/22 03:54 MPV 10.2 fL (7.4-10.4) 06/25/22 03:54 Neut % (Auto) 54.6 % 06/25/22 03:54 Lymph % (Auto) 37.7 % 06/25/22 03:54 [place] % (Auto) 5.6 % 06/25/22 03:54 Eos % (Auto) 1.1 % 06/25/22 03:54 Baso % (Auto) 0.8 % 06/25/22 03:54 Neut # (Auto) 3.51 10^3/uL (1.8-7.7) 06/25/22 03:54 Lymph # (Auto) 2.4 10^3/uL (0.8-4.8) 06/25/22 03:54 [place] # (Auto) 0.4 10^3/uL (0.2-0.9) 06/25/22 03:54 Eos # (Auto) 0.1 10^3/uL (0.0-0.8) 06/25/22 03:54 Baso # (Auto) 0.1 10^3/uL (0.0-0.1) 06/25/22 03:54 Nucleated RBC % (auto) 0 % 06/25/22 03:54 Nucleated RBCs # 0.0 /100WBC 06/25/22 03:54 PT 12.90 SECONDS (12.1-14.9) 06/25/22 03:54 INR 0.95 (0.8-1.2) 06/25/22 03:54 Sodium 140 mmol/L (136-145) 06/25/22 03:54 Potassium 4.0 mmol/L (3.5-5.1) 06/25/22 03:54 Chloride 106 mmol/L (98-107) 06/25/22 03:54 Carbon Dioxide 24 mmol/L (22-29) 06/25/22 03:54 Anion Gap 14.0 (5-19) 06/25/22 03:54 BUN 12 mg/dL (8-23) 06/25/22 03:54 Creatinine 0.6 mg/dL (0.5-0.9) 06/25/22 03:54 GFR Calculation 100.6 mL/min (90-130) 06/25/22 03:54 Glucose 84 mg/dL (65-115) 06/25/22 03:54 Calculated Osmolality 289 mOsm/kg (285-295) 06/25/22 03:54 Calcium 8.8 mg/dL (8.5-10.5) 06/25/22 03:54 Magnesium 2.0 mg/dL (1.7-2.3) 06/25/22 03:54 Total Bilirubin 0.4 mg/dL (0.15-1.2) 06/25/22 03:54 AST 12 U/L (0-32) 06/25/22 03:54 ALT 8 U/L (0-33) 06/25/22 03:54 Alkaline Phosphatase 55 U/L (35-105) 06/25/22 03:54 Troponin T Baseline 11 ng/L (0-10) H 06/24/22 13:24 Troponin T 120 Minute 15.02 ng/L (0-10) H 06/24/22 15:18 Delta Troponin T 4.02 ABS# (0-10) 06/24/22 15:18 Troponin T Hi Sens 6Hr 17.17 ng/L (0-10) H 06/24/22 19:10 Troponin T Hi Sens 6Hr Delta 6.17 ng/L (0-12) 06/24/22 19:10 Total Protein 6.2 g/dL (6.6-8.7) L 06/25/22 03:54 Albumin 4.0 g/dL (3.5-5.2) 06/25/22 03:54 Globulin 2.2 g/dL (1.3-4.6) 06/25/22 03:54 TSH 9.23 uIU/mL (0.27-4.20) H 06/25/22 03:54 Urine Color Yellow (Yellow) 06/24/22 14:06 Urine Appearance Clear (CLEAR) 06/24/22 14:06 Urine pH 7 (5-7) 06/24/22 14:06 Ur Specific [place] 1.000 (1.005-1.030) L 06/24/22 14:06 Urine Protein Neg (Negative) 06/24/22 14:06 Urine Glucose (UA) Norm (Normal) 06/24/22 14:06 Urine Ketones Negative (Negative) 06/24/22 14:06 Urine Blood Neg (Negative) 06/24/22 14:06 Urine Nitrate Negative (Negative) 06/24/22 14:06 Urine Bilirubin Neg (Negative) 06/24/22 14:06 Urine Urobilinogen Norm mg/dL (Negative) 06/24/22 14:06 Ur Leukocyte Esterase Negative (Negative) 06/24/22 14:06 Vitals Last Vital Signs Temp 97.4 F L 06/25/22 00:00 Pulse 64 06/25/22 11:00 Resp 12 06/25/22 11:00 BP 143/78 06/25/22 11:00 Pulse Ox 91 06/25/22 10:00 O2 Del Method 06/24/22 18:18 Discharge Plan Discharge Patient Disposition: Home Condition: Stable Prescriptions: New metoprolol tartrate 25 mg tablet 12.5 mg PO BID PRN (Reason: tachycardia) Qty: 30 1RF Rx Instructions: for H/R Greater then 120 Continued Synthroid 112 mcg tablet 112 mcg PO DAILY Qty: 90 3RF Rx Instructions: Take one tablet by mouth daily Max dose 112mcg per day Discharge Orders: Discharge Order (Routine); Ordered 06/25/22 Ordered By: Jayme Vnag Other Ambulatory Orders: Sestamibi Stress Test Request (Routine) Timeframe: 1 Week Facility: [facility] - Location: Cardiac Diagnostic Laboratory Ordered By: Jayme Vang MCT/Event Monitor 30 Days (Routine) Timeframe: 1 Week Facility: [facility] - Location: Radiology Ordered By: Jayme Vang Referrals: Arpan Camejo DO [Physician] - (Please arrange new patient appointment/hospital follow up.) Rosalind Jennings MD [Physician] - 1 month Discharge Diet: Cardiac Discharge Activity: Resume usual activity Patient Instructions: Metoprolol (By mouth), Heart Healthy Diet (DC), Nuclear Stress Test (GEN), Opioid Safety Discharge Attestations Time Spent in Discharge Care*: less than 30 min Quality Metrics Clinical Quality Measures [ No reported AMI, CVA or VTE this stay] Coding Level of Care Code Acute Chg FW DC note Diagnoses Hypothyroidism E03.9 Palpitation R00.2 Chest pain R07.9
== END 2022-06-25 12:06 | disposition home or self-care (01) ==
LOC: ER 16:09 → ICU 16:48
PROVIDERS: Admitting Provider Internal Medicine; Emergency Provider Family Medicine; Visit Provider Internal Medicine
DX: E03.9 Hypothyroidism, unspecified (principal); R00.2 Palpitations; R07.9 Chest pain, unspecified; Z86.16 Personal history of COVID-19; I50.9 Heart failure, unspecified; M06.9 Rheumatoid arthritis, unspecified; F17.210 Nicotine dependence, cigarettes, uncomplicated
CPT/HCPCS: 36415; 80053; 81003; 83735; 84443; 84484; 85025; 85610; 93005; 93306; 96372; 96374; 99285; G0378; J1650; J3490

== ENCOUNTER 2022-09-09 12:46 | Emergency (ER) | payer SELFPAY ==
[2022-09-09 12:52] VITALS: BP 130/76; PULSE 183; RESP 16; TEMP 36.9; O2SAT 95; BMI 21.9
--- NOTE | 2022-09-09 13:04 | XRR_ITS ---
PROCEDURE INFORMATION: Exam: XR Chest Exam date and time: 09/09/2022 2:29 PM Age: 66 years old Clinical indication: Dyspnea; Additional info: Svt TECHNIQUE: Imaging protocol: Radiologic exam of the chest. Views: 1 view. COMPARISON: CR XR chest 1V portable [id number] 05/26/2021 8:16 PM FINDINGS: Lungs: Stable moderate COPD . Pleural spaces: Unremarkable. No pleural effusion. No pneumothorax. Heart/Mediastinum: Unremarkable. No cardiomegaly. Bones/joints: Unremarkable. XR/XR chest 1V portable [id number] IMPRESSION: Stable moderate COPD .
--- NOTE | 2022-09-09 13:13 | PC.NURSE ---
dr. ayala in room with x2rns.
[2022-09-09] MEDS: adenosine 3 mg/mL SDV 2mL 6 MG IVP (13:14)
--- NOTE | 2022-09-09 13:17 | ECG_ITS ---
[facility] Test Date: 2022-09-09 Pat Name: Saritha Cisneros Department: Room: Gender: Female Flight Mechanic: : 1955 Requested By: Leif Reed Order Number: [id number] Mark MD: Fred Bowles M.D. Measurements Intervals [place] Rate: 103 P: 84 OK: 155 QRS: 85 QRSD: 86 T: 82 QT: 329 QTc: 431 Interpretive Statements SINUS TACHYCARDIA MODERATE ST DEPRESSION [0.05+ mV ST DEPRESSION] Compared to ECG 06/24/2022 19:38:01 ST (T wave) deviation now present Sinus bradycardia no longer present Electronically Signed On 09-11-2022 18:22:22 BEHAVIORAL INTERVENTION SPECIALIST by Fred Bowles M.D. [id number]
[2022-09-09] MEDS: sodium chloride 0.9% 1,000 ML 999 ML IV (13:23)
[2022-09-09 13:29] LABS: Basophils # 0.1 10^3/uL (0.0-0.1); Basophils % 0.7 %; Eosinophils # 0.1 10^3/uL (0.0-0.8); Eosinophils % 0.6 %; Hematocrit 46.4 % (37.0-47.0); Hemoglobin 15.5 g/dL (11.5-15.3); Lymphocytes # 1.5 10^3/uL (0.8-4.8); Lymphocytes % 18.1 %; Mean Corpuscular HGB Conc 33.4 g/dL (30.0-36.0); Mean Corpuscular Hemoglobin 32.7 pg (28.0-34.0); Mean Corpuscular Volume 97.9 fl (81-99); Mean Platelet Volume 9.8 fL (7.4-10.4); Monocytes # 0.5 10^3/uL (0.2-0.9); Monocytes % 5.3 %; Neutrophils # 6.33 10^3/uL (1.8-7.7); Neutrophils % 75.1 %; Nucleated Red Blood Cells % 0 %; Platelet Count 201 10^3/cmm (130-400); Red Blood Count 4.74 10^6/uL (4.1-5.3); Red Cell Distribution Width 12.3 % (12.1-15.1); White Blood Count 8.4 10^3/uL (4.0-10.0)
--- NOTE | 2022-09-09 13:33 | ED_ITS ---
HPI - Arrhythmia/Palpitations General: Chief Complaint: Arrhythmia/Palpitations Stated Complaint: High HR low o2 Time Seen by Provider: 09/09/22 12:58 History of Present Illness: 66-year-old female presents with rapid heart rate. Patient has a history of rapid heart rate but is not sure what it was from previously. Reports that it happened back in June. She is currently on m etoprolol. She also has a history of Marie's and is on levothyroxine. Patient and her family reports that her heart rate was as high as the 200s. That she was just sitting on the couch when she noticed it became rapid. Patient denies any recent illnesses, chest pain, shortness of breath or other systemic complaints. Associated symptoms: Deny anxiety, nausea or vomiting Review of Systems Const: Denies: fever(s) or chills Eyes: Denies: change in vision or blurry vision ENMT: Denies: throat pain or ear or mastoid pain Card: Reports: palpitations; Denies: chest pain or lightheadedness Resp: Denies: dyspnea or productive cough GI: Denies: abdominal pain, nausea or vomiting : Denies: flank pain or difficulty voiding Musc: Denies: back pain or extremity swelling Skin/Breast: Denies: rash or erythema Neuro: Denies: headache(s), numbness in extremities or dizziness Psych: Denies: anxiety or depression PFS ED PFSH: Medical History Chest pain Colitis Congestive heart failure Hypothyroidism Palpitation Rheumatoid arthritis Surgical History No history of previous surgery Family History Father CAD (coronary artery disease) Diabetes Mother Rheumatoid arteritis Social History Smoking and tobacco status: current every day smoker cigarettes Packs smoked per day: 0.5 Alcohol intake: never Physical Exam Const: COMMON NORMALS: no acute distress, average body habitus and patient oriented x3 HENMT: COMMON NORMALS: hearing grossly normal bilaterally and moist oral mucous membranes Eye: COMMON NORMALS: EOMs intact bilaterally and conjunctivae normal CONJUNCTIVA: Yes conjunctivae normal Neck/C-Spine: COMMON NORMALS: supple Resp: COMMON NORMALS: normal respiratory effort, No retractions and No use of accessory muscles Cardio: COMMON NORMALS: regular rhythm RATE: tachycardic RHYTHM: regular rhythm PERIPHERAL PULSES: radial pulses present GI: COMMON NORMALS: Normal to inspection, nondistended, normoactive bowel sounds present, Soft to palpation and non-tender PALPATION: Yes Soft to palpation Extremity: COMMON NORMALS: normal to inspection and full ROM Neuro: COMMON NORMALS: patient oriented x3, no focal motor deficits and no sensory deficits noted Psych: COMMON NORMALS: mental status grossly normal, Normal thought process present, normal affect and speech normal SPEECH: Yes normal speech THOUGHT PROCESS: Normal thought process present Skin: COMMON NORMALS: no rashes or lesions noted and no wounds GENERAL SKIN EXAM: no rashes or lesions noted Course Vital Signs: Vital signs: Vital Signs Temperature 98.4 F 09/09/22 12:52 Pulse Rate 87 09/09/22 13:45 Respiratory Rate 21 H 09/09/22 13:45 Blood Pressure 137/102 09/09/22 13:45 Pulse Oximetry 96 09/09/22 13:45 Oxygen Delivery Me thod 09/09/22 12:52 MDM - Arrhythmia/Palpitations Medical Decision Making Patient responded well to 6 mg of adenosine and 1 L normal saline IV bolus. Patient's heart rate remained sinus and slow down into the 80s. Patient felt suddenly better. Patient has a history of rapid heart rate. She reports that she will be following up with her outsole scheduler and regular doctor on outpatient basis. Patient stable and discharged home Lab Data 09/09/22 13:13 Laboratory Results WBC 8.4 10^3/uL (4.0-10.0) 09/09/22 13:13 RBC 4.74 10^6/uL (4.1-5.3) 09/09/22 13:13 Hgb 15.5 g/dL (11.5-15.3) H 09/09/22 13:13 Hct 46.4 % (37.0-47.0) 09/09/22 13:13 MCV 97.9 fl (81-99) 09/09/22 13:13 MCH 32.7 pg (28.0-34.0) 09/09/22 13:13 MCHC 33.4 g/dL (30.0-36.0) 09/09/22 13:13 RDW 12.3 % (12.1-15.1) 09/09/22 13:13 Plt Count 201 10^3/cmm (130-400) 09/09/22 13:13 MPV 9.8 fL (7.4-10.4) 09/09/22 13:13 Neut % (Auto) 75.1 % 09/09/22 13:13 Lymph % (Auto) 18.1 % 09/09/22 13:13 [place] % (Auto) 5.3 % 09/09/22 13:13 Eos % (Auto) 0.6 % 09/09/22 13:13 Baso % (Auto) 0.7 % 09/09/22 13:13 Neut # (Auto) 6.33 10^3/uL (1.8-7.7) 09/09/22 13:13 Lymph # (Auto) 1.5 10^3/uL (0.8-4.8) 09/09/22 13:13 [place] # (Auto) 0.5 10^3/uL (0.2-0.9) 09/09/22 13:13 Eos # (Auto) 0.1 10^3/uL (0.0-0.8) 09/09/22 13:13 Baso # (Auto) 0.1 10^3/uL (0.0-0.1) 09/09/22 13:13 Nucleated RBC % (auto) 0 % 09/09/22 13:13 Nucleated RBCs # 0.0 /100WBC 09/09/22 13:13 Sodium 142 mmol/L (136-145) 09/09/22 13:13 Potassium 4.1 mmol/L (3.5-5.1) 09/09/22 13:13 Chloride 104 mmol/L (98-107) 09/09/22 13:13 Carbon Dioxide 24 mmol/L (22-29) 09/09/22 13:13 Anion Gap 18.1 (5-19) 09/09/22 13:13 BUN 11 mg/dL (8-23) 09/09/22 13:13 Creatinine 1.0 mg/dL (0.5-0.9) H 09/09/22 13:13 GFR Calculation 55.8 mL/min (90-130) L 09/09/22 13:13 Glucose 108 mg/dL (65-115) 09/09/22 13:13 Calculated Osmolality 294 mOsm/kg (285-295) 09/09/22 13:13 Calcium 9.2 mg/dL (8.5-10.5) 09/09/22 13:13 Magnesium 2.0 mg/dL (1.7-2.3) 09/09/22 13:13 Total Bilirubin 0.2 mg/dL (0.15-1.2) 09/09/22 13:13 AST 17 U/L (0-32) 09/09/22 13:13 ALT 14 U/L (0-33) 09/09/22 13:13 Alkaline Phosphatase 68 U/L (35-105) 09/09/22 13:13 Troponin T Baseline 7 ng/L (0-10) 09/09/22 13:13 Total Protein 6.9 g/dL (6.6-8.7) 09/09/22 13:13 Albumin 4.2 g/dL (3.5-5.2) 09/09/22 13:13 Globulin 2.7 g/dL (1.3-4.6) 09/09/22 13:13 TSH 0.08 uIU/mL (0.27-4.20) L 09/09/22 13:13 Free T4 2.00 ng/dL (0.82-1.77) H 09/09/22 13:13 Discharge Plan Discharge Patient Disposition: Home Clinical Impression: Supraventricular tachycardia Condition: Stable Prescriptions: No Action levothyroxine 112 mcg tablet 112 mcg PO DAILY metoprolol tartrate 25 mg tablet 12.5 mg PO BID PRN (Reason: tachycardia) Qty: 30 1RF Rx Instructions: for H/R Greater then 120 Discharge Orders: Discharge ED (Routine); Ordered 09/09/22 Ordered By: Leif Reed Referrals: Blanche Lion NP [Primary Care Provider] - Discharge Diet: Advance as tolerated Discharge Activity: Resume usual activity Patient Instructions: Opioid Safety, Pain Management, Supraventricular Tachycardia (ED), Valsalva Maneuver (ED) Activity Restrictions/Additional Instructions: Follow-up with your primary care provider next week for recheck of your symptoms, return to the ER as needed Coding Level of Care Code ED Geotechnical Laboratory Technician for Chg Fwd Exam Comprehensive
[2022-09-09 13:42] VITALS: BP 137/102; PULSE 88; RESP 17; O2SAT 96
[2022-09-09 13:45] VITALS: BP 137/102; PULSE 87; RESP 21; O2SAT 96
[2022-09-09 13:57] LABS: Troponin(5th) Baseline 7 ng/L (0-10)
[2022-09-09 14:06] LABS: Alanine Aminotransferase 14 U/L (0-33); Albumin Level 4.2 g/dL (3.5-5.2); Alkaline Phosphatase 68 U/L (35-105); Anion Gap 18.1 (5-19); Aspartate Amino Transferase 17 U/L (0-32); Blood Urea Nitrogen 11 mg/dL (8-23); Calcium 9.2 mg/dL (8.5-10.5); Carbon Dioxide 24 mmol/L (22-29); Chloride 104 mmol/L (98-107); Globulin 2.7 g/dL (1.3-4.6); Glomerular Filtration Rate 55.8 mL/min (90-130); Glucose 108 mg/dL (65-115); Osmolality Calculated 294 mOsm/kg (285-295); Potassium 4.1 mmol/L (3.5-5.1); Sodium 142 mmol/L (136-145); Thyroid Stimulating Hormone 0.08 uIU/mL (0.27-4.20); Total Bilirubin 0.2 mg/dL (0.15-1.2); Total Protein 6.9 g/dL (6.6-8.7)
[2022-09-09 15:06] VITALS: PULSE 84; RESP 15; O2SAT 95
== END 2022-09-09 15:10 | disposition home or self-care (01) ==
PROVIDERS: Emergency Provider Student in an Organized Health Care Education/Training Program; PCP Nurse Practitioner Family
DX: I47.1 Supraventricular tachycardia (principal); I50.9 Heart failure, unspecified; F17.210 Nicotine dependence, cigarettes, uncomplicated
CPT/HCPCS: 71045; 80053; 83735; 84439; 84443; 84484; 85025; 93005; 96361; 96374; 99285; J0153; J7030

== ENCOUNTER → 2022-11-03 09:13 | Outpatient (BNVA) | payer MEDICARE, SELFPAY | PROVIDERS: PCP Nurse Practitioner Family; Visit Provider Nurse Practitioner Family | DX: E03.9 Hypothyroidism, unspecified (principal) | CPT/HCPCS: 84439; 84443 ==

== ENCOUNTER → 2022-11-06 12:36 | Outpatient (BNVA) | payer MEDICARE, SELFPAY | PROVIDERS: PCP Nurse Practitioner Family; Visit Provider Internal Medicine | DX: E03.9 Hypothyroidism, unspecified (principal); R00.2 Palpitations; Z79.890 Hormone replacement therapy; Z86.16 Personal history of COVID-19 | CPT/HCPCS: 99214 ==

== ENCOUNTER 2022-11-10 14:10 | Outpatient (CLI) | payer MEDICARE, SELFPAY ==
--- NOTE | 2022-11-10 14:23 | MM_ITS ---
WS: [id number] BILATERAL 3D TOMOSYNTHESIS DIGITAL SCREENING MAMMOGRAPHY WITH CAD CLINICAL INFORMATION: SCREENING HISTORY: Screening mammogram. No current complaints. COMPARISON: 2013 TECHNIQUE: Bilateral CC and MLO views. FINDINGS: Scattered fibroglandular densities bilaterally. No suspicious focal mass, asymmetry, calcifications, or architectural distortion. No evidence of malignancy. A few incidental punctate and lucent centered calcifications. MM/[place] [id number] IMPRESSION: BI-RADS: 2-Benign FOLLOW UP: 1 Year Follow-up Recommend return to annual screening mammography.
--- NOTE | 2022-11-10 14:30 | XR_ITS ---
WS: [id number] DEXA (DUAL ENERGY X-RAY ABSORPTIOMETRY) Bone mineral density was performed using a [employer] machine. HISTORY: Z78.0 - Asymptomatic menopausal state COMPARISON: None available. Lumbar spine BMD (L1-L4): 1.061 g/cm2 T score: -1.0 Z score: 0.9 Total hip BMD: Left: 0.850 g/cm2. T score: -1.3 Z score: 0.1 Right: 0.783 g/cm2. T score: -1.8 Z score: -0.4 10 year probability of a major osteoporotic fracture is 38.6%. XR/XR DEXA axial skeleton* [id number] IMPRESSION: OSTEOPENIA based upon the WHO classification for females.
== END 2022-11-10 14:11 | disposition home or self-care (01) ==
LOC: RAD 14:11
PROVIDERS: PCP Nurse Practitioner Family; Visit Provider Nurse Practitioner Family
DX: Z78.0 Asymptomatic menopausal state (principal); Z12.31 Encounter for screening mammogram for malignant neoplasm of breast
CPT/HCPCS: 77063; 77067; 77080

== ENCOUNTER 2022-12-12 11:24 | Outpatient (CLI) | payer MEDICARE, SELFPAY ==
--- NOTE | 2022-12-12 12:30 | CT_ITS ---
WS: [id number] LDCT LUNG CANCER SCREENING TECHNIQUE: Noncontrast CT of the chest with coronal and sagittal reformatted images. CLINICAL INFORMATION: F17.210 - Nicotine dependence, cigarettes, uncomplicated COMPARISON: None. DLP: 75.13 mGy.cm DIvol: Mean CTDIvol: 1.60 (mGy) All CT scans at [facility] use at least one of these dose optimization techniques: automat ed exposure control; mA and/or kV adjustment per patient size (includes targeted exams where dose is matched to clinical indication); or iterative reconstruction. FINDINGS: Mild chronic emphysematous changes. No acute pulmonary infiltrates. No focal pneumonia or pleural flu id. A few tiny scattered subcentimeter predominantly subpleural nodules. Slightly ectatic ascending t horacic aorta measuring 3.3 CM. Aortic calcification. Normal caliber descending thoracic aorta. No me diastinal or hilar lymphadenopathy. No axillary lymphadenopathy. LEFT adrenal mass partially evaluated measuring 3.7 x 3.4 cm most compatible with adrenal adenoma. RI GHT adrenal gland is normal. Normal GE junction. Splenic artery calcification. CT/CT lung screening [id number] IMPRESSION: Partially visualized LEFT adrenal mass measuring 3.7 x 3.4 cm likel y represents adrenal adenoma. This can be further evaluated with adrenal protoc ol CT. No prior comparisons. LUNG-RADS: 2S-Benign Appearance or Behavior with Significant Findings FOLLOW UP: 12 Month: Continue annual screening with LDCT
== END 2022-12-12 11:25 | disposition home or self-care (01) ==
LOC: RAD 11:26
PROVIDERS: PCP Nurse Practitioner Family; Visit Provider Nurse Practitioner Family
DX: Z12.2 Encounter for screening for malignant neoplasm of respiratory organs (principal); F17.210 Nicotine dependence, cigarettes, uncomplicated
CPT/HCPCS: 71271

== ENCOUNTER 2023-01-03 13:34 | Outpatient (CLI) | payer MEDICARE, SELFPAY ==
[2023-01-03 14:37] LABS: Free T4 Free Thyroxine 1.93 ng/dL (0.82-1.77); Thyroid Stimulating Hormone 0.17 uIU/mL (0.27-4.20)
[2023-01-04 09:55] LABS: T3 Total 132 ng/dL (76-181)
[2023-01-04 16:20] LABS: Thyroglobulin AB 45 IU/mL (< or = 1)
[2023-01-04 16:39] LABS: Thyroid Peroxidase Antobodies 4 IU/mL (<9)
[2023-01-09 16:05] LABS: TSH Receptor Binding Antibody <1.00 IU/L (< OR = 2.00)
== END 2023-01-03 13:35 | disposition home or self-care (01) ==
PROVIDERS: PCP Nurse Practitioner Family; Visit Provider Internal Medicine
DX: E03.9 Hypothyroidism, unspecified (principal); R00.2 Palpitations
CPT/HCPCS: 36415; 83516; 84439; 84443; 84480; 86376; 86800

== ENCOUNTER → 2023-01-09 14:48 | Outpatient (BNVA) | payer MEDICARE, SELFPAY | PROVIDERS: PCP Nurse Practitioner Family; Visit Provider Internal Medicine | DX: E03.9 Hypothyroidism, unspecified (principal); R00.2 Palpitations; E27.8 Other specified disorders of adrenal gland; Z79.890 Hormone replacement therapy | CPT/HCPCS: 99214 ==

== ENCOUNTER 2023-01-12 13:27 | Outpatient (CLI) | payer MEDICARE, SELFPAY ==
--- NOTE | 2023-01-12 13:38 | XR_ITS ---
WS: [id number] EXAMINATION: XR cervical spine 3V* [id number] Cervical spine 3 views REASON FOR EXAM: M54.2 - Cervicalgia COMPARISON: None available. FINDINGS: There is no sign of acute fracture or subluxation. There is absence of the usual cervical lordosis. V ertebral body heights maintained. There is prominent intervertebral disc narrowing from C4 through C7 including prominent osteophytes. There is no prevertebral soft tissue change. There is a focal 5 m m calcification on the left at approximately the C4-5 level. XR/XR cervical spine 3V* [id number] IMPRESSION: No acute osseous abnormality. Prominent degenerative disc changes from C4 through C7.
== END 2023-01-12 13:28 | disposition home or self-care (01) ==
LOC: RAD 13:32
PROVIDERS: PCP Nurse Practitioner Family; Visit Provider Nurse Practitioner Family
DX: M54.2 Cervicalgia (principal)
CPT/HCPCS: 72040

== ENCOUNTER 2023-01-25 15:36 | Outpatient (CLI) | payer MEDICARE, SELFPAY ==
--- NOTE | 2023-01-25 16:11 | CT_ITS ---
WS: [id number] CT adrenals with and without contrast. HISTORY: LEFT adrenal mass. Noncontrast 5 mm imaging is performed through the abdomen with attention to the adrenal glands. Addit ional 1 minute and 15 minute delayed images are then performed through the adrenal glands. CONTRAST: Omnipaque 350; 95 mL IV. DLP: 509.[address] scans at [facility] use at least one of these dose optimization techniques: automated e xposure control; mA and/or kV adjustment per patient size (includes targeted exams where dose is matc hed to clinical indication); or iterative reconstruction. COMPARISON: 12/12/2022 Low-attenuation mass on the noncontrast CT involving the LEFT adrenal gland measures 3.9 x 3.0 cm. Ho unsfield units are low consistent with an adenoma. There is enhancement on the postcontrast phase wit h good washout. The value of the absolute and relative washouts are both consistent with benign adeno mas. The RIGHT adrenal gland is normal. Normal lung bases. No cardiomegaly. No hiatal hernia. Liver and spleen are negative. Normal enhanceme nt of the portal vein. Negative gallbladder and pancreas. No bile duct dilatation. Negative kidneys. Moderate atherosclerotic plaque within the abdominal aorta. No adenopathy or ascites. No GI tract obs truction. Bilateral L5 pars defects. CT/CT abdomen wo/w con [id number] IMPRESSION: 1. LEFT adrenal adenoma. Hounsfield units and the relative an absolute washout values are consistent with benign adenoma. 2. Moderate atherosclerotic plaque abdominal aorta.
[2023-01-25] MEDS: iohexol 350 mg/mL 500 mL Btl (per mL) IV (16:12)
== END 2023-01-25 15:37 | disposition home or self-care (01) ==
PROVIDERS: PCP Nurse Practitioner Family; Visit Provider Nurse Practitioner Family
DX: E27.8 Other specified disorders of adrenal gland (principal); D35.02 Benign neoplasm of left adrenal gland; I70.0 Atherosclerosis of aorta
CPT/HCPCS: 74170; Q9967

== ENCOUNTER → 2023-02-06 09:17 | Outpatient (BNVA) | payer MEDICARE, SELFPAY | PROVIDERS: PCP Nurse Practitioner Family; Visit Provider Nurse Practitioner Family | DX: I10 Essential (primary) hypertension (principal) | CPT/HCPCS: 80053; 80061; 84443 ==

== ENCOUNTER 2023-04-13 13:29 | Outpatient (CLI) | payer MEDICARE, SELFPAY ==
[2023-04-13 14:58] LABS: Anion Gap 15.1 (5-19); Blood Urea Nitrogen 9 mg/dL (8-23); Calcium 9.1 mg/dL (8.5-10.5); Carbon Dioxide 25 mmol/L (22-29); Chloride 103 mmol/L (98-107); Free T4 Free Thyroxine 1.94 ng/dL (0.82-1.77); Glucose 96 mg/dL (65-115); Osmolality Calculated 287 mOsm/kg (285-295); Potassium 4.1 mmol/L (3.5-5.1); Sodium 139 mmol/L (136-145); Thyroid Stimulating Hormone 0.25 uIU/mL (0.27-4.20)
[2023-04-15 06:45] LABS: T3 Total 108 ng/dL (76-181)
[2023-04-18 02:59] LABS: Plasma Renin Activity LC/MS/MS 3.78 ng/mL/h (0.25-5.82)
== END 2023-04-13 13:30 | disposition home or self-care (01) ==
LOC: LAB 13:31
PROVIDERS: PCP Nurse Practitioner Family; Visit Provider Internal Medicine
DX: E03.9 Hypothyroidism, unspecified (principal); E27.8 Other specified disorders of adrenal gland; R00.2 Palpitations
CPT/HCPCS: 80048; 82088; 84244; 84439; 84443; 84480

== ENCOUNTER 2023-04-16 09:03 | Outpatient (CLI) | payer MEDICARE, SELFPAY ==
[2023-04-16 10:06] LABS: Total Volume Urine 1850 ml
[2023-04-16 10:23] LABS: Urine Creatinine 52 mg/dL (28-217)
[2023-04-20 12:19] LABS: Calculated Total (E+NE) 100 mcg/24 h (26-121)
== END 2023-04-16 09:04 | disposition home or self-care (01) ==
PROVIDERS: PCP Nurse Practitioner Family; Visit Provider Internal Medicine
DX: E03.9 Hypothyroidism, unspecified (principal); R00.2 Palpitations; E27.8 Other specified disorders of adrenal gland
CPT/HCPCS: 82384; 82570

== ENCOUNTER → 2023-04-20 08:47 | Outpatient (BNVA) | payer MEDICARE, SELFPAY | PROVIDERS: PCP Nurse Practitioner Family; Visit Provider Internal Medicine | DX: E03.9 Hypothyroidism, unspecified (principal); E06.3 Autoimmune thyroiditis; R00.2 Palpitations; E27.8 Other specified disorders of adrenal gland; Z79.890 Hormone replacement therapy | CPT/HCPCS: 99214 ==

== ENCOUNTER 2023-04-26 13:12 | Outpatient (CLI) | payer MEDICARE, SELFPAY ==
[2023-04-26 14:08] LABS: Free T4 Free Thyroxine 1.97 ng/dL (0.82-1.77)
== END 2023-04-26 13:13 | disposition home or self-care (01) ==
LOC: LAB 13:15
PROVIDERS: PCP Nurse Practitioner Family; Visit Provider Internal Medicine
DX: E03.9 Hypothyroidism, unspecified (principal)
CPT/HCPCS: 36415; 84439

== ENCOUNTER 2023-05-07 11:30 | Outpatient (CLI) | payer MEDICARE, SELFPAY ==
[2023-05-14 08:10] LABS: Total Urine 2075 mL; Urine Creatinine 1.37 g/24 h (0.50-2.15)
== END 2023-05-07 11:31 | disposition home or self-care (01) ==
LOC: LAB 11:34
PROVIDERS: PCP Nurse Practitioner Family; Visit Provider Internal Medicine
DX: E03.9 Hypothyroidism, unspecified (principal); R00.2 Palpitations; E27.8 Other specified disorders of adrenal gland
CPT/HCPCS: 82530

== ENCOUNTER 2023-05-18 12:37 | Outpatient (CLI) | payer MEDICARE, SELFPAY | END 2023-05-18 12:38 | disposition home or self-care (01) | LOC: LAB 12:40 | PROVIDERS: PCP Nurse Practitioner Family; Visit Provider Internal Medicine | DX: E03.9 Hypothyroidism, unspecified (principal) | CPT/HCPCS: 36415; 84439 ==

== ENCOUNTER → 2023-06-04 16:42 | Outpatient (BNVA) | payer MEDICARE, SELFPAY | PROVIDERS: PCP Nurse Practitioner Family; Visit Provider Nurse Practitioner Family | DX: E03.9 Hypothyroidism, unspecified (principal); D50.9 Iron deficiency anemia, unspecified | CPT/HCPCS: 80053; 82728; 83550; 85025 ==

== ENCOUNTER → 2023-06-21 12:59 | Outpatient (BNVA) | payer MEDICARE, SELFPAY | PROVIDERS: PCP Nurse Practitioner Family; Visit Provider Internal Medicine | DX: E03.9 Hypothyroidism, unspecified (principal); R00.2 Palpitations; E27.8 Other specified disorders of adrenal gland; Z79.890 Hormone replacement therapy | CPT/HCPCS: 36415; 84439; 84443; 99214 ==

== ENCOUNTER → 2023-08-09 14:40 | Outpatient (BNVA) | payer MEDICARE, SELFPAY | PROVIDERS: PCP Nurse Practitioner Family; Visit Provider Nurse Practitioner Family | DX: R10.30 Lower abdominal pain, unspecified (principal); K52.9 Noninfective gastroenteritis and colitis, unspecified; M79.604 Pain in right leg; M79.605 Pain in left leg | CPT/HCPCS: 81000 ==

== ENCOUNTER 2023-08-21 14:11 | Outpatient (CLI) | payer MEDICARE, SELFPAY ==
--- NOTE | 2023-08-21 14:30 | USCV_ITS ---
Saritha Cisneros Age: 67 Gender: F : 1955 Exam Date: 08/21/2023 14:24 Ordering Phys: Blanche Lion NP Technologist: Exam Location: [facility] [place] Indication: bilat edema and pain PROCEDURES: Venous duplex imaging was performed in bilateral lower extremities. The following venous structures were evaluated: common femoral vein, profunda vein, proximal portion of the greater saphenous vein, superficial femoral vein, and the popliteal vein. In addition, the posterior tibial and peroneal trunk were evaluated. FINDINGS: Normal 2-D Doppler and augmentation and compressibility throughout the lower extremity venous structures. Additional imaging through the proximal calf veins also reveals no thrombus. Limited evaluation of the greater saphenous vein is patent with no thrombus. CONCLUSIONS No evidence of right lower extremity DVT. No evidence of left lower extremity DVT. Agustin Dia MD (Electronically Signed) Final Date: 21 August 2023 16:40 S
== END 2023-08-21 14:12 | disposition home or self-care (01) ==
LOC: RAD 14:11
PROVIDERS: PCP Nurse Practitioner Family; Visit Provider Nurse Practitioner Family
DX: M79.604 Pain in right leg (principal); M79.605 Pain in left leg; R60.0 Localized edema
CPT/HCPCS: 93970

== ENCOUNTER 2023-08-24 14:00 | Outpatient (CLI) | payer MEDICARE, SELFPAY ==
--- NOTE | 2023-08-24 15:00 | USR_ITS ---
PROCEDURE INFORMATION: Exam: US Duplex Bilateral Lower Extremity Arteries Exam date and time: 08/24/2023 3:27 PM Age: 67 years old Clinical indication: Pain; Leg, lower and foot and toes; Bilateral; Patient HX: Smoker, ; additional info: M79.604 - pain in right leg TECHNIQUE: Imaging protocol: Real-time ultrasound scan of the arteries of the bilateral lower extremities with 2-D leslie scale, color Doppler flow and spectral waveform analysis. Images documented and saved. COMPARISON: No relevant prior studies available. FINDINGS: Right lower extremity: The common femoral artery, proximal, mid, and distal superficial femoral artery, and popliteal arteries are triphasic. Right posterior tibial artery and right dorsalis pedis artery are triphasic. Left lower extremity: Left common femoral artery, proximal, mid, and distal superficial femoral artery, and popliteal arteries are triphasic. Left posterior tibial artery and left dorsalis pedis arteries are triphasic. Ankle brachial index on the right 1 Ankle brachial index on the left 1 Waveform is grossly normal with sharp upstroke and dicrotic notch. US/CV arterial duplex [facility] [id number] Impression: Normal arterial Doppler of the lower extremities. Multiphasic waveforms bilaterally. Ankle brachial indices of 1.
== END 2023-08-24 14:01 | disposition home or self-care (01) ==
LOC: RAD 14:02
PROVIDERS: PCP Nurse Practitioner Family; Visit Provider Nurse Practitioner Family
DX: M79.604 Pain in right leg (principal); M79.605 Pain in left leg
CPT/HCPCS: 93925

== ENCOUNTER 2024-02-17 11:19 | Emergency (ER) | payer MEDICARE, SELFPAY ==
--- NOTE | 2024-02-17 11:26 | XRR_ITS ---
PROCEDURE INFORMATION: Exam: XR Left Knee Exam date and time: 02/17/2024 12:43 PM Age: 68 years old Clinical indication: Left; Patient HX: Chronic lt lateral knee pain; PT felt pop x 9 months ago TECHNIQUE: Imaging protocol: Radiologic exam of the left knee. Views: 3 views. COMPARISON: No relevant prior studies available. FINDINGS: Bones/joints: Normal. Soft tissues: Normal. XR/XR knee LT 3V* [id number] IMPRESSION: No acute findings.
--- NOTE | 2024-02-17 11:27 | W.ED.LOWEXIN ---
HPI - Extremity Injury (Lower) General: Chief Complaint: Extremity Problem,Nontraumatic Stated Complaint: lt knee pain Time Seen by Provider: 02/17/24 11:27 History of Present Illness: 68-year-old female presents emerged part with complaints of left knee pain. She states she injured her left knee approximately 9 months ago when she was pushing her mother in a wheelchair. She states since that time she has continued to have intermittent aching dull pain that she describes as a 4 out of 10 to her left knee. She does not appear to have any difficulty ambulating as she walked without difficulty from the waiting room to the ER exam room and has been walking in the exam room after arrival. Patient states that she also has chronic neck and back pain. She states she sees a roller painter and has had injections in her neck. She states that she has right-sided neck pain that radiates to her right shoulder. She states that is been approximately 6 months since she had any type of x-ray of her neck and states that she feels her neck is aching more lately and also would like a x-ray of her neck. She denies urinary incontinence or weakness. Review of Systems General: Reports: 10 or more systems reviewed and unremarkable except in HPI and below Musc: Reports: neck pain, extremity pain and joint pain PFS ED PFSH: Medical History (Updated 02/17/24 @ 12:39 by Kaveh Meza MD) Chest pain Palpitation Colitis Rheumatoid arthritis Congestive heart failure Hypothyroidism Surgical History No history of previous surgery Family History Father CAD (coronary artery disease) Diabetes Mother Rheumatoid arteritis Social History Smoking and tobacco/nicotine status: current every day tobacco/nicotine user cigarettes Packs smoked per day: 0.5 Alcohol intake: never Physical Exam Narrative: EXAM NARRATIVE: General: Alert, no acute distress. Skin: Warm, dry, Intact. Head: Normocephalic, atraumatic. Neck: Supple, trachea midline. No nuchal rigidity, no difficulty with passive or active flexion, extension or lateral rotation. No crepitus, no palpable step-offs, nontender to palpation. Eye: Extraocular movements are intact. PERRLA Ears, nose, mouth and throat: mucosa moist. Cardiovascular: Regular, Normal peripheral perfusion. Respiratory: Lungs are clear to auscultation, respirations are non-labored, breath sounds are equal, Symmetrical chest wall expansion. Gastrointestinal: Soft, Nontender, Non distended, Normal bowel sounds. Musculoskeletal: Normal ROM, No edema, nontender to palpation, no obvious deformity. Motor strength in the upper and lower extremities are 5 x 5 and equal bilaterally. Neurological: Alert and oriented, No focal neurological deficit observed. Psychiatric: Cooperative, appropriate mood & affect. Course Vital Signs: Vital signs: Vital Signs Temperature 97.8 F 02/17/24 13:39 Pulse Rate 74 02/17/24 13:39 Respiratory Rate 17 02/17/24 13:39 Blood Pressure 175/90 02/17/24 13:39 Pulse Oximetry 94 02/17/24 13:39 Oxygen Delivery Me thod Room Air 02/17/24 11:59 MDM - Extremity Injury (Lower) Medical Decision Making Physical exam completed and documented I will obtain radiographic examination of her left knee and cervical spine and evaluate. She currently takes cyclobenzaprine and gabapentin as well as ibuprofen for pain control. I have encouraged her to follow-up with her pain management physician and her primary care provider I will provide her intramuscular injection of Toradol while here in the emergency department. Review of her radiographic exams demonstrates no acute findings, there is osteoarthritis of the left knee and degenerative disease of the cervical spine. 13: 01 I discussed the plan of care as well as the radiographic findings with the patient. Reevaluation of her pain after medication administration the patient endorses increased pain control. Medical Records I reviewed the patient's medical records. Lab Data Radiology Impressions Knee X-Ray 02/17/24 11:26 IMPRESSION: No acute findings. Cervical Spine X-Ray 02/17/24 12:27 IMPRESSION: Multilevel arthritic changes All radiology interpretation(s) finalized by discharge Discharge Plan Discharge Patient Disposition: Home Clinical Impression: Cervical radiculopathy Osteoarthritis of left knee Qualifiers: Osteoarthritis type: unspecified Qualified Code(s): M17.12 - Unilateral primary osteoarthritis, left knee Condition: Stable Prescriptions: New naproxen 500 mg tablet 500 mg PO Q12H PRN (Reason: pain) Qty: 60 0RF No Action gabapentin 300 mg capsule 300 mg PO BID Qty: 180 3RF cyclobenzaprine 10 mg tablet 10 mg PO TID PRN (Reason: muscle spasm) Qty: 30 0RF ibuprofen 800 mg tablet 800 mg PO Q8H PRN (Reason: pain) Qty: 30 0RF mesalamine [Delzicol] 400 mg capsule (with del rel tablets) 800 mg PO TID 30 Days Qty: 180 1RF omeprazole 40 mg capsule,delayed release(DR/EC) 40 mg PO DAILY 56 Days Qty: 60 0RF levothyroxine 75 mcg tablet See Rx Instructions .ROUTE .COMPLEX Qty: 90 0RF Dose Instruction: TAKE 1 TABLET BY MOUTH EVERY DAY Rx Instructions: TAKE 1 TABLET BY MOUTH EVERY DAY metoprolol tartrate 25 mg tablet 12.5 mg PO BID PRN (Reason: tachycardia) Qty: 30 1RF Rx Instructions: for H/R Greater then 120 Discharge Orders: Discharge ED (Routine); Ordered 02/17/24 Ordered By: Kaveh Meza Referrals: Blanche Lion, REHAB TECHNICIAN [Primary Care Provider] - Discharge Diet: Usual diet Discharge Activity: Limit activity as instructed Patient Instructions: Opioid Safety, Pain Management Activity Restrictions/Additional Instructions: Activity Restrictions/Additional Instructions: Thank you for choosing [facility] for your healthcare needs today. Please realize that you were seen in the Emergency Department and that we are providing you with an emergency medical screening exam and this may not be a complete and all inclusive of all the testing and or medical work-up that you may need to determine your ailment or severity of your illness. It is very important that you follow-up as instructed with your Primary care provider or Specialist for additional evaluation and to discuss your medical treatment plan. Coding Level of Care Code ED [employer] Marker for Shikha Zabala
[2024-02-17 11:59] VITALS: BP 175/90; PULSE 74; RESP 17; TEMP 36.6; O2SAT 94
--- NOTE | 2024-02-17 12:27 | XRR_ITS ---
PROCEDURE INFORMATION: Exam: XR Cervical Spine Exam date and time: 02/17/2024 12:43 PM Age: 68 years old Clinical indication: Patient HX: Chronic neck pain; No known injury TECHNIQUE: Imaging protocol: Radiologic exam of the cervical spine. Views: 2 or 3 views. COMPARISON: CR XR cervical spine 3V* [id number] 01/12/2023 1:41 PM FINDINGS: Bones/joints: There is multilevel degenerative disc disease along with vertebral body spurring and facet arthropathy. No fracture or subluxation. Soft tissues: Unremarkable. XR/XR cervical spine 3V* [id number] IMPRESSION: Multilevel arthritic changes
[2024-02-17] MEDS: ketorolac 30 mg/mL INJ IM (13:30)
[2024-02-17 13:39] VITALS: BP 175/90; PULSE 74; RESP 17; TEMP 36.6; O2SAT 94
== END 2024-02-17 13:41 | disposition home or self-care (01) ==
PROVIDERS: Emergency Provider Internal Medicine; PCP Nurse Practitioner Family
DX: M17.12 Unilateral primary osteoarthritis, left knee (principal); M54.12 Radiculopathy, cervical region; I50.9 Heart failure, unspecified; F17.210 Nicotine dependence, cigarettes, uncomplicated
CPT/HCPCS: 72040; 73562; 96372; 99284; J1885

== ENCOUNTER 2024-02-21 06:48 | Outpatient (CLI) | payer MEDICARE, SELFPAY ==
--- NOTE | 2024-02-21 07:15 | MRR_ITS ---
PROCEDURE INFORMATION: Exam: MR Abdomen Without and With Contrast Exam date and time: 02/21/2024 7:34 AM Age: 68 years old Clinical indication: Left adrenal adenoma; Additional info: E27.8 - other specified disorders of adrenal gland TECHNIQUE: Imaging protocol: Magnetic resonance imaging of the abdomen without and with contrast. Contrast material: MULTIHANCE; Contrast volume: 12 ml; Contrast route: INTRAVENOUS (IV); COMPARISON: CT abdomen wo/w con [id number] 01/25/2023 4:34 PM FINDINGS: Liver: No acute findings. Gallbladder and bile ducts: No stones. No ductal dilation. Pancreas: No ductal dilation. Spleen: No splenomegaly. Adrenal glands: 4 cm left adrenal lesion with macroscopic fat demonstrated on chemical shift imaging series 701, image 6 compatible with adenoma. There is intrinsic increased T1 and T2 signal in the same area that also demonstrates enhancement. No diffusion weighted imaging was obtained/provided. Kidneys and ureters: No hydronephrosis. Stomach and bowel: Visualized stomach and intestines are unremarkable. Intraperitoneal space: No free fluid. Vasculature: No abdominal aortic aneurysm. Bones/joints: Unremarkable. Soft tissues: Unremarkable. MR/MR adrenals wo/w con [id number] IMPRESSION: 4 cm left adrenal lesion demonstrating macroscopic fat compatible with adenoma with probable internal hemorrhagic component. Recommend surgical consultation given these characteristics and size.
[2024-02-21] MEDS: gadobenate dimeglumine 20 mL vial IV (08:06)
== END 2024-02-21 06:49 | disposition home or self-care (01) ==
LOC: RAD 06:48
PROVIDERS: PCP Nurse Practitioner Family; Visit Provider Internal Medicine
DX: E27.8 Other specified disorders of adrenal gland (principal); D35.02 Benign neoplasm of left adrenal gland
CPT/HCPCS: 74183; A9577

== ENCOUNTER → 2024-02-29 11:57 | Outpatient (BNVA) | payer MEDICARE, SELFPAY | PROVIDERS: PCP Nurse Practitioner Family; Visit Provider Internal Medicine | DX: E27.8 Other specified disorders of adrenal gland (principal); E03.9 Hypothyroidism, unspecified; R00.2 Palpitations; I10 Essential (primary) hypertension; D50.9 Iron deficiency anemia, unspecified; Z79.890 Hormone replacement therapy | CPT/HCPCS: 99214 ==

== ENCOUNTER → 2024-03-03 09:00 | Outpatient (BNVA) | payer MEDICARE, SELFPAY | PROVIDERS: PCP Nurse Practitioner Family; Visit Provider Nurse Practitioner Family | DX: E03.9 Hypothyroidism, unspecified (principal); I10 Essential (primary) hypertension | CPT/HCPCS: 80053; 80061; 84443 ==

== ENCOUNTER → 2024-03-04 14:13 | Outpatient (BNVA) | payer MEDICARE, SELFPAY | PROVIDERS: PCP Nurse Practitioner Family; Referring Provider Nurse Practitioner Family; Visit Provider Orthopaedic Surgery | DX: M54.2 Cervicalgia (principal); G89.29 Other chronic pain; M62.838 Other muscle spasm; M47.12 Other spondylosis with myelopathy, cervical region | CPT/HCPCS: 72050; 99204 ==

== ENCOUNTER 2024-03-13 15:13 | Outpatient (CLI) | payer MEDICARE, SELFPAY ==
--- NOTE | 2024-03-13 16:00 | MR_ITS ---
WS: [id number] MR CERVICAL SPINE WO/W COMPARISON: None. HISTORY: Neck Pain TECHNIQUE: Sagittal T1, T2 and T2 inversion recovery; axial T2, T2 gradient and fiesta. Post gadolini um imaging with fat saturation technique. FINDINGS:Straightening of the normal cervical is noted changes. Slight retrolisthesis C4 on C5. Disc osteophyte complexes worse at C4-C5 and C5-C6. Lordosis. No high grade central canal narrowing. Cord signal is normal. C2-3: Moderate facet arthropathy. Spinal canal and foramen are patent. C3-4: Mild disc osteophyte complex. Moderate facet arthropathy. Mild RIGHT and no significant LEFT fo raminal narrowing. C4-5: Disc osteophyte complex with endplate ridging. Slight indentation of the LEFT ventral cervical cord. Mild central canal stenosis. Severe LEFT and mild RIGHT bony foraminal narrowing. C5-6: Disc osteophyte complex with endplate ridging. Moderate to severe LEFT and mild to moderate RIG HT bony foraminal narrowing. Mild facet arthropathy. Uncovertebral joint hypertrophy. Mild central ca nal stenosis. C6-7: Disc osteophyte complex with endplate ridging. Moderate bilateral bony foraminal narrowing. Spi nal canal is patent. Mild facet arthropathy. C7-T1: Spinal canal and foramen are patent. MR/MR cervical spine wo/w [id number] IMPRESSION: 1. Straightening of the normal cervical lordosis. No high-grade central canal narrowing. Cord signal is normal. 2. No abnormal gadolinium enhancement. 3. Disc osteophyte complex C4-5 with slight indentation cervical cord and mild central canal stenosis. Mild central canal stenosis C5-6. 4. Moderate to severe bony foraminal narrowing worse at LEFT C4-5 and LEFT C5- 6 5. Moderate bilateral bony foraminal narrowing C6-7.
[2024-03-13] MEDS: gadobenate dimeglumine 20 mL vial IV (16:27)
== END 2024-03-13 15:14 | disposition home or self-care (01) ==
LOC: RAD 15:13
PROVIDERS: PCP Nurse Practitioner Family; Visit Provider Orthopaedic Surgery
DX: M48.02 Spinal stenosis, cervical region (principal); M25.78 Osteophyte, vertebrae; M99.61 Osseous and subluxation stenosis of intervertebral foramina of cervical region
CPT/HCPCS: 72156; A9577

== ENCOUNTER 2024-03-18 11:06 | Outpatient (CLI) | payer MEDICARE, SELFPAY ==
[2024-03-18 12:58] LABS: Urine Creatinine 54 mg/dL (28-217)
[2024-03-18 14:02] LABS: Total Volume Urine 2800 ml
[2024-03-22 12:24] LABS: Free Cortisol Urine 39.2 mcg/24 h (4.0-50.0); Total Urine 2800 mL; Urine Creatinine 1.41 g/24 h (0.50-2.15)
[2024-03-22 18:09] LABS: Calculated Total (E+NE) 59 mcg/24 h (26-121)
[2024-03-24 11:18] LABS: Metanephrines Total Urine 2800 mL; Urine Metanephrines Total 734 mcg/24 h (224-832)
== END 2024-03-18 11:07 | disposition home or self-care (01) ==
LOC: LAB 11:08
PROVIDERS: PCP Nurse Practitioner Family; Visit Provider Internal Medicine
DX: E27.8 Other specified disorders of adrenal gland (principal); E03.9 Hypothyroidism, unspecified; R00.2 Palpitations; I10 Essential (primary) hypertension; D50.9 Iron deficiency anemia, unspecified
CPT/HCPCS: 82384; 82530; 82570; 83835

== ENCOUNTER → 2024-04-22 12:38 | Outpatient (BNVA) | payer MEDICARE, SELFPAY | PROVIDERS: PCP Nurse Practitioner Family; Referring Provider Nurse Practitioner Family; Visit Provider Student in an Organized Health Care Education/Training Program | DX: M17.12 Unilateral primary osteoarthritis, left knee | CPT/HCPCS: 20610; 73560; 73565; 99204 ==

== ENCOUNTER 2024-05-02 10:24 | Outpatient (CLI) | payer MEDICARE, SELFPAY ==
[2024-05-02 11:21] LABS: Free T4 Free Thyroxine 1.89 ng/dL (0.82-1.77); Thyroid Stimulating Hormone 2.99 uIU/mL (0.27-4.20)
== END 2024-05-02 10:25 | disposition home or self-care (01) ==
PROVIDERS: PCP Nurse Practitioner Family; Visit Provider Internal Medicine
DX: R00.2 Palpitations (principal); E03.9 Hypothyroidism, unspecified; E27.8 Other specified disorders of adrenal gland; I10 Essential (primary) hypertension; D50.9 Iron deficiency anemia, unspecified
CPT/HCPCS: 36415; 82088; 84244; 84439; 84443

== ENCOUNTER 2024-05-20 09:08 | Outpatient (CLI) | payer MEDICARE, SELFPAY ==
[2024-05-22 10:46] LABS: Free T4 Free Thyroxine 1.88 ng/dL (0.82-1.77)
== END 2024-05-20 09:09 | disposition home or self-care (01) ==
LOC: LAB 09:09
PROVIDERS: PCP Nurse Practitioner Family; Visit Provider Internal Medicine
DX: E03.9 Hypothyroidism, unspecified (principal); R00.2 Palpitations
CPT/HCPCS: 36415; 84439; 84443

== ENCOUNTER → 2024-05-22 09:42 | Outpatient (BNVA) | payer MEDICARE, SELFPAY | PROVIDERS: PCP Nurse Practitioner Family; Visit Provider Internal Medicine | DX: E27.8 Other specified disorders of adrenal gland (principal); E03.9 Hypothyroidism, unspecified; R00.2 Palpitations; I10 Essential (primary) hypertension; D50.9 Iron deficiency anemia, unspecified; Z79.890 Hormone replacement therapy | CPT/HCPCS: 99214 ==

== ENCOUNTER 2024-07-16 11:40 | Outpatient (CLI) | payer MEDICARE, SELFPAY ==
[2024-07-16 12:21] LABS: Free T4 Free Thyroxine 1.51 ng/dL (0.82-1.77); Thyroid Stimulating Hormone 1.78 uIU/mL (0.27-4.20)
== END 2024-07-16 11:41 | disposition home or self-care (01) ==
LOC: LAB 11:42
PROVIDERS: PCP Nurse Practitioner Family; Visit Provider Internal Medicine
DX: R00.2 Palpitations (principal); E03.9 Hypothyroidism, unspecified
CPT/HCPCS: 84439; 84443

== ENCOUNTER → 2024-07-22 10:00 | Outpatient (BNVA) | payer MEDICARE, SELFPAY | PROVIDERS: PCP Nurse Practitioner Family; Visit Provider Internal Medicine | DX: R00.2 Palpitations (principal); E03.9 Hypothyroidism, unspecified; E27.8 Other specified disorders of adrenal gland; Z79.890 Hormone replacement therapy | CPT/HCPCS: 99214 ==

== ENCOUNTER → 2024-07-29 14:37 | Outpatient (BNVA) | payer MEDICARE, SELFPAY | PROVIDERS: PCP Nurse Practitioner Family; Visit Provider Student in an Organized Health Care Education/Training Program | DX: M17.12 Unilateral primary osteoarthritis, left knee | CPT/HCPCS: 20610; 99213; J3301 ==

== ENCOUNTER → 2024-09-11 11:52 | Outpatient (BNVA) | payer MEDICARE, SELFPAY | PROVIDERS: PCP Nurse Practitioner Family; Visit Provider Internal Medicine | DX: E03.9 Hypothyroidism, unspecified (principal); R00.2 Palpitations; E27.8 Other specified disorders of adrenal gland; R00.0 Tachycardia, unspecified; R25.1 Tremor, unspecified; Z79.890 Hormone replacement therapy | CPT/HCPCS: 99214 ==

== ENCOUNTER → 2024-09-29 08:19 | Outpatient (BNVA) | payer MEDICARE, SELFPAY | PROVIDERS: PCP Nurse Practitioner Family; Visit Provider Internal Medicine | DX: R00.2 Palpitations (principal); E27.8 Other specified disorders of adrenal gland | CPT/HCPCS: 82533; 84439; 84443 ==

== ENCOUNTER → 2024-11-13 10:54 | Outpatient (BNVA) | payer MEDICARE, SELFPAY | PROVIDERS: PCP Nurse Practitioner Family; Visit Provider Physician Assistant | DX: M25.562 Pain in left knee (principal); G89.29 Other chronic pain; M17.12 Unilateral primary osteoarthritis, left knee; M23.305 Other meniscus derangements, unspecified medial meniscus, unspecified knee; E03.9 Hypothyroidism, unspecified; R00.2 Palpitations; E27.8 Other specified disorders of adrenal gland; R00.0 Tachycardia, unspecified; R25.1 Tremor, unspecified; M23.306 Other meniscus derangements, unspecified meniscus, right knee | CPT/HCPCS: 99213; 99214 ==

== ENCOUNTER → 2024-11-26 07:30 | Outpatient (BNVA) | payer MEDICARE, SELFPAY | PROVIDERS: PCP Nurse Practitioner Family; Visit Provider Psychiatry & Neurology Neurology | DX: M47.12 Other spondylosis with myelopathy, cervical region (principal); R26.89 Other abnormalities of gait and mobility; R00.2 Palpitations; G62.9 Polyneuropathy, unspecified; D49.7 Neoplasm of unspecified behavior of endocrine glands and other parts of nervous system; R25.1 Tremor, unspecified; R29.818 Other symptoms and signs involving the nervous system; M54.2 Cervicalgia; G89.29 Other chronic pain; M54.50 Low back pain, unspecified; R29.898 Other symptoms and signs involving the musculoskeletal system; M62.549 Muscle wasting and atrophy, not elsewhere classified, unspecified hand | CPT/HCPCS: 99203 ==

== ENCOUNTER 2024-11-27 08:35 | Outpatient (CLI) | payer MEDICARE, SELFPAY ==
--- NOTE | 2024-11-27 08:45 | MR_ITS ---
WS: [id number] MRI LEFT KNEE NONCONTRAST TECHNIQUE: Axial PD, coronal PD fat sat, coronal PD, sagittal PD, and sagittal PD fat-sat images obtained. CLINICAL INFORMATION: injury of left knee COMPARISON: None. FINDINGS: Distal quadriceps and patella tendons are intact. Normal ACL and PCL. Normal medial and lateral meniscus. No acute appearing meniscal tears. Normal medial and lateral collateral ligaments. Normal popliteus. Grade 2-3 chondromalacia patella. Normal medial and lateral patellar retinaculum. Normal popliteal fossa. Grade 2-3 chondromalacia medial and lateral joint compartments. No subchondral edema. Fibula head appears normal. MR/MR knee LT wo con* [id number] IMPRESSION: 1. Normal ACL and PCL. 2. Normal medial and lateral meniscus. No acute appearing meniscal tears. 3. Mild to moderate tricompartment arthritis with grade 2/3 chondromalacia. 4. No other acute findings. Outbridge grading: grade III: partial-thickness cartilage loss with focal ulcer ation
== END 2024-11-27 08:36 | disposition home or self-care (01) ==
LOC: RAD 08:36
PROVIDERS: PCP Nurse Practitioner Family; Visit Provider Physician Assistant
DX: M25.562 Pain in left knee (principal); G89.29 Other chronic pain; S89.92XA Unspecified injury of left lower leg, initial encounter; X58.XXXA Exposure to other specified factors, initial encounter; M13.862 Other specified arthritis, left knee; M94.262 Chondromalacia, left knee
CPT/HCPCS: 73721

== ENCOUNTER 2024-12-02 14:47 | Outpatient (CLI) | payer MEDICARE, SELFPAY ==
--- NOTE | 2024-12-02 15:15 | USCV_ITS ---
Saritha Cisneros Age: 69 Gender: F : 1955 Exam Date: 12/02/2024 14:58 Ordering Phys: Niko Arnett MD Technologist: USR Exam Location: [facility] [place] Indication: balance issues Risk Factors: Previous Vascular Surgery: Right Brachial BP: / Left Brachial BP: / Right Left Velocity (cm/s) Spectral Plaque Velocity (cm/s) Spectral Plaque Syst/Diast Broadening Syst/Diast Broadening 78.90/ 16.70 Prox CCA 96.70 / 24.00 69.80/ 18.00 Mid CCA 96.00 / 28.00 83.90/ 23.10 Distal CCA 88.80 / 27.80 42.60/ 16.70 Prox ICA 103.30/ 32.10 61.40/ 22.00 Mid ICA 97.50 / 24.00 61.30/ 24.70 Distal ICA 62.00 / 26.30 101.20 ECA 83.40 0.50 ICA/CCA 1.20 Antegrade Vertebral Retrograde 57.40/ 14.90 cm/s 23.20/ 6.90 cm/s Tri Subclavian Beaver 112.7 63.80 0 FINDINGS Retrograde Doppler flow noted in the left vertebral artery with monophasic subclavian compatible with subclavian steal. This could be further evaluated with MRA or CTA neck CONCLUSIONS Right ICA stenosis <50%. Mild atheromatous plaque right carotid bulb/ICA. Left ICA stenosis <50%. Mild atheromatous plaque left carotid bulb/ICA. Intimal thickening in the common carotid arteries and internal carotid arteries bilaterally. Normal antegrade Doppler flow noted in the right vertebral artery. Retrograde Doppler flow noted in the left vertebral artery with monophasic subclavian compatible with subclavian steal. This could be further evaluated with MRA or CTA neck Agustin Dia MD (Electronically Signed) Final Date: 02 December 2024 16:25 S
== END 2024-12-02 14:48 | disposition home or self-care (01) ==
PROVIDERS: PCP Nurse Practitioner Family; Visit Provider Psychiatry & Neurology Neurology
DX: R00.2 Palpitations (principal); R26.89 Other abnormalities of gait and mobility; I65.23 Occlusion and stenosis of bilateral carotid arteries; R93.89 Abnormal findings on diagnostic imaging of other specified body structures
CPT/HCPCS: 93880

== ENCOUNTER 2024-12-03 11:47 | Outpatient (CLI) | payer MEDICARE, SELFPAY ==
--- NOTE | 2024-12-03 12:15 | MR_ITS ---
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 COMPARISON: CT head 10/14/2014 TECHNIQUE: Multiplanar imaging performed through the brain with MultiHance 12 ml's IV. Normal diffusion imaging. Patchy and confluent T2 and FLAIR signal hyperintensities throughout the white matter. At least moderate small vessel ischemic type changes are noted. More than expected for a patient of this age. There is mild cerebral volume loss and atrophy. No hemorrhage or large infarct. No susceptibility artifacts or prior lacunar infarcts. Ventricles and extra-axial spaces are normal. Mildly empty sella turcica. No mass identified. Visualized posterior fossa and brainstem are also normal. Postcontrast images are negative for masses or vascular malformations. Dural venous sinuses are normal. Paranasal sinuses: Well aerated with no significant disease. Mastoid air cells: Normal. Calvarium and scalp: Normal. MR/MR head wo/w con [id number] IMPRESSION: 1. No acute infarct, hemorrhage or edema. 2. Moderate small vessel ischemic type changes throughout the white matter, mo re than expected for a patient of this age. 3. Incidental note is made of an empty sella turcica. 4. No mass or abnormal enhancement within the brain.
== END 2024-12-03 11:48 | disposition home or self-care (01) ==
LOC: RAD 11:49
PROVIDERS: PCP Nurse Practitioner Family; Visit Provider Psychiatry & Neurology Neurology
DX: D49.7 Neoplasm of unspecified behavior of endocrine glands and other parts of nervous system (principal); R26.89 Other abnormalities of gait and mobility; R93.0 Abnormal findings on diagnostic imaging of skull and head, not elsewhere classified; G31.89 Other specified degenerative diseases of nervous system
CPT/HCPCS: 70553

== ENCOUNTER → 2024-12-16 14:26 | Outpatient (BNVA) | payer MEDICARE, SELFPAY | PROVIDERS: PCP Nurse Practitioner Family; Visit Provider Nurse Practitioner Family | DX: M47.12 Other spondylosis with myelopathy, cervical region (principal); G89.29 Other chronic pain; M62.838 Other muscle spasm; G62.9 Polyneuropathy, unspecified; R29.818 Other symptoms and signs involving the nervous system; R25.1 Tremor, unspecified; R29.898 Other symptoms and signs involving the musculoskeletal system | CPT/HCPCS: 99213 ==

== ENCOUNTER → 2024-12-23 09:25 | Outpatient (BNVA) | payer MEDICARE, SELFPAY | PROVIDERS: PCP Nurse Practitioner Family; Referring Provider Psychiatry & Neurology Neurology; Visit Provider Psychiatry & Neurology Neurology | DX: G56.22 Lesion of ulnar nerve, left upper limb (principal); M62.549 Muscle wasting and atrophy, not elsewhere classified, unspecified hand; R29.898 Other symptoms and signs involving the musculoskeletal system; G56.01 Carpal tunnel syndrome, right upper limb; R20.2 Paresthesia of skin; M79.601 Pain in right arm; M79.602 Pain in left arm; M79.641 Pain in right hand; M79.642 Pain in left hand | CPT/HCPCS: 95912 ==

== ENCOUNTER → 2025-01-07 14:47 | Outpatient (BNVA) | payer MEDICARE, SELFPAY | PROVIDERS: PCP Nurse Practitioner Family; Visit Provider Student in an Organized Health Care Education/Training Program | DX: M94.262 Chondromalacia, left knee (principal) | CPT/HCPCS: 99213 ==

== ENCOUNTER → 2025-01-28 13:04 | Outpatient (BNVA) | payer MEDICARE, SELFPAY | PROVIDERS: PCP Nurse Practitioner Family; Visit Provider Physician Assistant | DX: G56.02 Carpal tunnel syndrome, left upper limb (principal); G56.22 Lesion of ulnar nerve, left upper limb | CPT/HCPCS: 73130; 99213 ==

== ENCOUNTER → 2025-02-17 13:52 | Outpatient (BNVA) | payer MEDICARE, SELFPAY | PROVIDERS: PCP Nurse Practitioner Family; Visit Provider Physician Assistant | DX: M94.262 Chondromalacia, left knee (principal); M23.305 Other meniscus derangements, unspecified medial meniscus, unspecified knee; G89.29 Other chronic pain | CPT/HCPCS: 20610; 99213; J7318 ==

== ENCOUNTER 2025-03-24 14:21 | Outpatient (CLI) | payer MEDICARE, SELFPAY | END 2025-03-24 14:22 | disposition home or self-care (01) | LOC: LAB 03-25 08:59 | PROVIDERS: PCP Nurse Practitioner Family; Visit Provider Family Medicine | DX: E55.9 Vitamin D deficiency, unspecified (principal); I10 Essential (primary) hypertension; E03.9 Hypothyroidism, unspecified; E27.8 Other specified disorders of adrenal gland; R79.89 Other specified abnormal findings of blood chemistry; R00.2 Palpitations; M54.50 Low back pain, unspecified | CPT/HCPCS: 80053; 80061; 81000; 82306; 82607; 82728; 82746; 83540; 84439; 84443; 85027 ==

== ENCOUNTER 2025-04-03 11:05 | Outpatient (CLI) | payer MEDICARE, SELFPAY ==
--- NOTE | 2025-04-03 12:00 | CT_ITS ---
WS: [id number] LDCT LUNG CANCER SCREENING HISTORY: Z87.891 - Personal history of nicotine dependence TECHNIQUE: Axial imaging performed from the apices to 1 cm below the costophrenic angles. Coronal and sagittal reformats are submitted with axial MIP series. All CT scans at [facility] use at least one of these dose optimization techniques: automated exposure control; mA and/or kV adjustment per patient size (includes targeted exams where dose is matched to clinical indication); or iterative reconstruction. DLP: 49.31 mGy.cm DIvol: Mean CTDIvol: 0.70 (mGy) COMPARISON: 12/12/2022 Diagnostic quality: Satisfactory Lungs: Moderate pulmonary hyperexpansion. Centrilobular emphysema. There are a few very tiny peripheral micronodules. No enlarging mass or nodule. Linear thin areas of scarring or atelectasis at the lung bases. No endobronchial lesions. Heart: Normal size heart.. Other findings: Mild scattered plaque within the aorta. Mild ectasia of the ascending aorta. Normal size pulmonary artery. No adrenal mass. Small hiatal hernia. Previously described LEFT adrenal adenoma is identified on today's exam. Vascular calcifications in the suprarenal aorta and splenic artery. CT/CT lung screening [id number] IMPRESSION: LUNG-RADS: 2-Benign Appearance or Behavior FOLLOW UP: 12 Month: Continue annual screening with LDCT OTHER FINDINGS (S MODIFIER): None.
== END 2025-04-03 11:06 | disposition home or self-care (01) ==
LOC: RAD 11:06
PROVIDERS: PCP Family Medicine; Visit Provider Family Medicine
DX: Z12.2 Encounter for screening for malignant neoplasm of respiratory organs (principal); Z87.891 Personal history of nicotine dependence; R91.8 Other nonspecific abnormal finding of lung field; J43.2 Centrilobular emphysema; J98.4 Other disorders of lung; I70.0 Atherosclerosis of aorta; I77.810 Thoracic aortic ectasia; K44.9 Diaphragmatic hernia without obstruction or gangrene; D35.02 Benign neoplasm of left adrenal gland; I70.8 Atherosclerosis of other arteries
CPT/HCPCS: 71271

== ENCOUNTER → 2025-06-09 10:33 | Outpatient (BNVA) | payer MEDICARE, SELFPAY | PROVIDERS: PCP Family Medicine; Visit Provider Internal Medicine | DX: E03.9 Hypothyroidism, unspecified (principal); R00.2 Palpitations; E27.8 Other specified disorders of adrenal gland; R00.0 Tachycardia, unspecified; R25.1 Tremor, unspecified | CPT/HCPCS: 99214 ==

== ENCOUNTER → 2025-07-07 12:57 | Outpatient (BNVA) | payer MEDICARE, SELFPAY | PROVIDERS: PCP Family Medicine; Visit Provider Physician Assistant | DX: M94.262 Chondromalacia, left knee (principal) | CPT/HCPCS: 20610; 73560; 73565; 99213; J3301; J9999 ==

== ENCOUNTER → 2025-08-25 13:36 | Outpatient (BNVA) | payer MEDICARE, SELFPAY | PROVIDERS: PCP Family Medicine; Visit Provider Physician Assistant | DX: M94.262 Chondromalacia, left knee (principal); Z71.89 Other specified counseling | CPT/HCPCS: 20610; 99213; J7318 ==

== ENCOUNTER → 2025-10-07 12:47 | Outpatient (BNVA) | payer MEDICARE, SELFPAY | PROVIDERS: PCP Family Medicine; Visit Provider Physician Assistant | DX: M94.262 Chondromalacia, left knee (principal); Z71.89 Other specified counseling | CPT/HCPCS: 20610; 99213; J3301; J9999 ==